=== PATIENT | female | born 1945 | race Caucasian/White ===

== ENCOUNTER 2020-10-31 00:30 | Inpatient (IN) | payer BC, MEDICARE, OTHER ==
[2020-10-31] MEDS ORDERED: METHYLPREDNISOLONE INJ 125 MG/2 ML SDV IV ONE (00:45)
[2020-10-31 00:55] LABS: ABSOLUTE EOSINOPHILS # (AUTO) 0.2 10^3/uL (0.0-0.6); ABSOLUTE LYMPHOCYTES (AUTO) 1.1 10^3/uL (0.5-4.7); ABSOLUTE MONOCYTES (AUTO) 0.7 10^3/uL (0.1-1.4); ABSOLUTE NEUT (AUTO) 7.4 10^3/uL (1.7-8.2); BASOPHILS % (AUTO) 0.4 % (0-2); EOSINOPHILS % (AUTO) 2.2 % (0-6); HEMATOCRIT 30.4 % (36.0-47.0); HEMOGLOBIN 10.1 g/dL (12.0-15.5); LYMPHOCYTES % (AUTO) 11.9 % (13-45); MEAN CORPUSCULAR HEMOGLOBIN 30.8 pg (27.0-33.4); MEAN CORPUSCULAR HGB CONC 33.1 g/dL (32.0-36.0); MEAN CORPUSCULAR VOLUME 93 fl (80-97); PLATELET COUNT 278 10^3/uL (150-450); RED BLOOD COUNT 3.27 10^6/uL (3.72-5.28); SEGMENTED NEUTROPHILS % (AUTO) 78.5 % (42-78); TOTAL CELLS COUNTED % (AUTO) 100 %; WHITE BLOOD COUNT 9.4 10^3/uL (4.0-10.5)
[2020-10-31 01:07] LABS: INTERNATIONAL RATION (INR) 1.16; PROTHROMBIN TIME 15.1 SEC (11.4-15.4)
[2020-10-31 01:12] LABS: ARTERIAL BLOOD BASE EXCESS 4.2 mmol/L; ARTERIAL BLOOD H2CO3 2.13 mmol/L (1.05-1.35); ARTERIAL BLOOD HCO3 32.6 mmol/L (20-24); ARTERIAL BLOOD O2 SATURATION 99.9 % (94-98); ARTERIAL BLOOD PH 7.28 (7.35-7.45); ARTERIAL BLOOD PO2 596.4 mmHg (80-100); ARTERIAL BLOOD TOTAL CO2 34.8 mmol/L (21-25)
[2020-10-31 01:13] LABS: ARTERIAL BLOOD FIO2 100%
[2020-10-31 01:14] LABS: ARTERIAL BLOOD PCO2 70.7 mmHg (35-45)
[2020-10-31 01:15] LABS: APPEARANCE,URINE SLIGHTLY-CLOUDY; BILIRUBIN,URINE NEGATIVE (NEGATIVE); COLOR,URINE YELLOW; GLUCOSE, URINE NEGATIVE (NEGATIVE); KETONES,URINE NEGATIVE (NEGATIVE); PROTEIN,URINE >=500 mg/dL (NEGATIVE); URINE SPECIFIC GRAVITY 1.013; UROBILINOGEN,URINE NEGATIVE mg/dL (<2.0)
[2020-10-31 01:16] LABS: ALBUMIN 3.2 g/dL (3.5-5.0); ALKALINE PHOSPHATASE 61 U/L (38-126); ANION GAP 6 (5-19); ASPARTATE AMINO TRANSFERASE 22 U/L (14-36); BILIRUBIN,DIRECT 0.3 mg/dL (0.0-0.4); BILIRUBIN,TOTAL 0.5 mg/dL (0.2-1.3); BLOOD UREA NITROGEN 14 mg/dL (7-20); CALCIUM 8.2 mg/dL (8.4-10.2); CARBON DIOXIDE 34 mmol/L (22-30); CHLORIDE 92 mmol/L (98-107); GLUCOSE 207 mg/dL (75-110); POTASSIUM 4.2 mmol/L (3.6-5.0); TOTAL PROTEIN 5.1 g/dL (6.3-8.2)
--- NOTE | 2020-10-31 01:20 | RADIOLOGY REPORT (SQ) ---
EXAM DESCRIPTION: X-RAY CHEST- One View CLINICAL HISTORY: Evaluate endotracheal tube and orogastric tube placement. COMPARISON: None available. TECHNIQUE: Single view of the chest. FINDINGS: Patient is status post intubation with endotracheal tube tip approximately 3.8 cm above the emeka. Enteric tube is seen coursing below the diaphragm with tip beyond the imaged portion of the abdomen. There is trace blunting of the bilateral costophrenic angles with minimal bibasilar opacities. The pulmonary vascularity is normal. The cardiomediastinal silhouette is normal in size. Osseous structures appear grossly intact. IMPRESSION: 1. Positioning of endotracheal tube and enteric tube as above. 2. Evidence of small bilateral pleural effusions with nonspecific adjacent opacities.
[2020-10-31 01:35] LABS: NT PRO BNP 563 pg/mL (<125); TROPONIN I < 0.012 ng/mL
[2020-10-31] MEDS ORDERED: PROPOFOL 1,000 MG/100 ML INFUS..BTL IV PRN (02:21)
[2020-10-31] MEDS ORDERED: LORAZEPAM INJ 2 MG/1 ML VIAL IV ONE (03:12)
[2020-10-31] MEDS ORDERED: VECURONIUM BROMIDE INJ 10 MG VIAL IV ONE (03:12)
[2020-10-31 04:51] LABS: PHOSPHORUS 4.5 mg/dL (2.5-4.5)
--- NOTE | 2020-10-31 04:52 | ER Document Report ---
ED General - General Chief Complaint: Respiratory Arrest Stated Complaint: DIFFFICULTY BREATHING Time Seen by Provider: 10/31/20 00:41 Primary Care Provider: YAZMIN DELGADILLO [Primary Care Provider] - Follow up as needed - HPI Context: Chief Complaint: [Respiratory failure] [This is a 75-year-old female with a history of COPD who presents via EMS. EMS is relating all history on the patient; patient arrives intubated. Call was made to EMS for respiratory difficulty. When EMS arrived they noted that the patient was in obvious respiratory distress and measured a O2 sat of 91% on 4 L of oxygen. The EMS crew administered 1 albuterol treatment followed by 1 albuterol/Atrovent treatment. This was unfortunately unsuccessful in alleviating the patient's symptoms. She became unresponsive and her teeth were clenched so EMS performed RSI and intubated the patient with a 6.5 ET tube. ] History obtained from [patient] Symptoms began:[Last night] Onset: [Gradual] Timing: [Gradual] Quality: [Sensation of dyspnea] Intensity: [Severe per EMS] Location: [Respiratory system] Radiation: [N/A] [The pain does not migrate to a new location.] Aggravating factors: History of COPD Relieving factors: [none] Positive SOB [Denies] nausea [Denies] vomiting [Denies] sweats [Denies] fever [Denies] cough [Denies] calf or leg swelling or pain - Related Data Allergies/Adverse Reactions: No Known Allergies Allergy (Unverified 10/31/20 00:58) Home Medications: acebutol 200mg, alprazolam 0.5mg, amlodepine 2.5mg, apixaban 5mg, atorvastain 20mg, biotin, calcium, cranberry tab, flecainide 50mg tab, fluoxetine 10mg, gabapentin 300mg, hydrocodone-acetaminophen 5-325, duo-neb, culturelle, levomefolate-algal oil, levothyroxine 100mcg, losartan 100mg, magnesium oxide 400mg, omeprazole 40mg, ondansetron 4mg, 2L O2, temazepam, tizanidine 4mg, trelegy ellipta, ventolin inhaler, vitamin C 500mg, Vitamin D3 100mcg Past Medical History - General Information source: Patient - Social History Smoking Status: Unknown if Ever Smoked Lives with: Family Family History: Reviewed & Not Pertinent - Past Medical History Cardiac Medical History: Reports: Hx Hypertension Pulmonary Medical History: Reports: Hx COPD Review of Systems - Review of Systems Notes: Review of systems as below unless otherwise stated in HPI. CONSTITUTIONAL [No] fever, [No] chills. EYES [No] eye pain. ENT [No] URI symptoms, [No] sore throat, [No] ear pain. CARDIOVASCULAR [No] chest pain, [No] palpitations, [No] edema. RESPIRATORY [No] Cough, positive SOB, [No] wheezing. GASTROINTESTINAL [No] abdominal pain, [No] nausea, [No] Diarrhea, [No] Vomiting, [No] constipatio n, [No] melena, [No] rectal bleeding. GENITOURINARY [No] dysuria, [No] urinary frequency, [No] hematuria, [No] urinary urgency, [No] vaginal discharge, [No] vaginal bleeding. MUSCULOSKELETAL [No] Back pain. SKIN [No] Rash. NEUROLOGIC [No] Headache, [No] recent seizures, [No] paralysis,[No] parathesias. ENDOCRINE [No] polyuria. HEMO/LYMPATIC [No] easy brusing PSYCHIATRIC [No] depression. Physical Exam - Vital signs Vitals: Pulse Ox 100 10/31/20 00:30 - Notes Notes: CONSTITUTIONAL [Vital signs reviewed, patient is intubated, sedated and paralyzed. Current GCS is 3 HEAD [Atraumatic, Normocephalic.] EYES [Eyes are normal to inspection, No discharge from eyes, Sclera are normal, Conjunctiva are normal.] ENT [External ears normal to inspection, Nose examination normal, Mouth normal to inspection.] NECK No jugular venous distention, No meningeal signs, ] RESPIRATORY CHEST [Chest is nontender, breath sounds currently sound clear and equal bilaterally.] CARDIOVASCULAR [RRR, No murmurs, Normal S1 S2, No rub, No gallop.] ABDOMEN [Abdomen is nontender, No pulsatile masses, No other masses, Bowel sounds normal, No distension, No peritoneal signs, No hernias.] BACK [There is no CVA Tenderness, There is no tenderness to palpation, Normal inspection.] UPPER EXTREMITY [Inspection normal, No cyanosis, No clubbing, No edema, LOWER EXTREMITY [Inspection normal, No cyanosis, No clubbing, No edema, No calf tenderness, NEURO Patient is intubated sedated and paralyzed. Current GCS is 3.] SKIN [Skin is warm, Skin is dry, Skin is normal color.] PSYCHIATRIC [Unable to assess at this time. ] Course - Vital Signs Vital signs: Temp Pulse Resp BP Pulse Ox 98.6 F 71 13 140/66 H 100 10/31/20 04:16 10/31/20 00:55 10/31/20 04:15 10/31/20 04:16 10/31/20 04:30 - Laboratory Results Result Diagrams: 10/31/20 00:37 10/31/20 00:37 Laboratory Results Interpreted: 10/31/20 10/31/20 10/31/20 00:37 00:37 00:37 RBC 3.27 L Hgb 10.1 L Hct 30.4 L Lymph % (Auto) 11.9 L Seg Neutrophils % 78.5 H Carbonic Acid ABG pH ABG pCO2 ABG pO2 ABG HCO3 ABG Total CO2 ABG O2 Saturation Sodium 131.7 L Chloride 92 L Carbon Dioxide 34 H Glucose 207 H POC Glucose Calcium 8.2 L NT-Pro-B Natriuret Pep 563 H Total Protein 5.1 L Albumin 3.2 L Urine Protein Leukocyte Esterase Rfl 10/31/20 10/31/20 10/31/20 00:37 00:37 01:33 RBC Hgb Hct Lymph % (Auto) Seg Neutrophils % Carbonic Acid 2.13 H ABG pH 7.28 L ABG pCO2 70.7 H* ABG pO2 596.4 H ABG HCO3 32.6 H ABG Total CO2 34.8 H ABG O2 Saturation 99.9 H Sodium Chloride Carbon Dioxide Glucose POC Glucose 181 H Calcium NT-Pro-B Natriuret Pep Total Protein Albumin Urine Protein >=500 H Leukocyte Esterase Rfl SMALL H 10/31/20 03:33 RBC Hgb Hct Lymph % (Auto) Seg Neutrophils % Carbonic Acid 1.59 H ABG pH ABG pCO2 52.9 H ABG pO2 142.3 H ABG HCO3 30.7 H ABG Total CO2 32.3 H ABG O2 Saturation 98.7 H Sodium Chloride Carbon Dioxide Glucose POC Glucose Calcium NT-Pro-B Natriuret Pep Total Protein Albumin Urine Protein Leukocyte Esterase Rfl Critical Laboratory Results Reviewed: Yes Attending or Supervising Physician who Reviewed Labs: SHASHANK,SUMMER IV - Radiology Results Critical Radiology Results Reviewed: No Critical Results Attending or Supervising Physician who Reviewed Radiology: SUMMER ENCARNACION IV - EKG Interpretation by Me Additional EKG results interpreted by me: 10/31/20 05:02 EKG obtained on 10/31/2020 at 0110 hrs. was interpreted by this MD. Findings: Normal sinus rhythm, rate 65, normal axis, WI interval appears to be within normal limits, P waves preceding QRS complexes, QRS complexes appear narrow, QTC is 466, there are no obvious patterns of ST segment elevation, depression or reciprocal changes present to suggest acute myocardial ischemia or infarction. - Consults Ricardo Campbell NP, Automobile Relocation Engineer Service Time consulted: 04:30 - Excepted patient for admission to ICU on behalf of Dr. Kim Reason for consultation: 10/31/20 05:04 Acute respiratory failure with hypercapnia, patient intubated Consulted provider: will come to ER Procedures - Intubation Orotracheal Time of Intubation: 00:30 - 6.5 tube needs to be exchanged for better respiratory management Airway evaluation: Normal anatomy Mallampati Classification: Class 2 Intubation method: Orotracheal Blade type: Castell[place] Blade size: 4 Equipment used: Bougie ETT size: 7.5 ETT secured at: Lips ETT secured at (cm): 22 Breath Sounds after Intubation: Equal End tidal CO2 confirmed: Yes Ventilator settings: CMV Post Intubation Xray: Yes Intubation Complications: No complications Critical Care Note - Critical Care Note Total time excluding time spent on procedures (mins): 120 - Management of intub ated patient and respiratory failure with hypercapnia Discharge - Discharge Clinical Impression: Acute respiratory failure with hypercapnia Condition: Serious Disposition: ADMITTED INPATIENT Admitting Provider: Judy (Automobile Relocation Engineer) Unit Admitted: ICU Referrals: LOCALMD,NO [Primary Care Provider] - Follow up as needed
[2020-10-31 04:55] LABS: ARTERIAL BLOOD BASE EXCESS 4.7 mmol/L; ARTERIAL BLOOD FIO2 40%; ARTERIAL BLOOD H2CO3 1.59 mmol/L (1.05-1.35); ARTERIAL BLOOD HCO3 30.7 mmol/L (20-24); ARTERIAL BLOOD O2 SATURATION 98.7 % (94-98); ARTERIAL BLOOD PCO2 52.9 mmHg (35-45); ARTERIAL BLOOD PH 7.38 (7.35-7.45); ARTERIAL BLOOD PO2 142.3 mmHg (80-100); ARTERIAL BLOOD TOTAL CO2 32.3 mmol/L (21-25)
[2020-10-31] MEDS ORDERED: NORMAL SALINE 1000 ML 1,000 ML IV PRN (05:42)
[2020-10-31] MEDS ORDERED: DEXTROSE 40% GEL 15 GM TUBE PO PRN ×2 (05:51)
[2020-10-31] MEDS ORDERED: DEXMEDETOMIDINE IN 0.9 % NACL 400 MCG/100 ML RTUPB IV PRN (05:51)
[2020-10-31] MEDS ORDERED: GLUCAGON,HUMAN RECOMB 1 MG INJ IM PRN (05:51)
[2020-10-31] MEDS ORDERED: DEXTROSE 50%-WATER 25 GM/50 ML DISP.SYRIN IV PRN ×2 (05:51)
[2020-10-31] MEDS ORDERED: HYDROCOD/ACETAMIN 7.5-325 MG/15 ML ORAL SOLN UDCUP NG PRN (06:08)
[2020-10-31] MEDS ORDERED: FENTANYL CITRATE INJ/PF 100 MCG/2 ML AMPUL IV ONE (06:10)
[2020-10-31 07:00] LABS: APPEARANCE,URINE CLEAR; BILIRUBIN,URINE NEGATIVE (NEGATIVE); COLOR,URINE YELLOW; GLUCOSE, URINE 50 mg/dL (NEGATIVE); KETONES,URINE TRACE mg/dL (NEGATIVE); LEUKOCYTE ESTERASE,URINE NEGATIVE (NEGATIVE); NITRITE,URINE NEGATIVE (NEGATIVE); PROTEIN,URINE 30 mg/dL (NEGATIVE); URINE SPECIFIC GRAVITY 1.012; UROBILINOGEN,URINE NEGATIVE mg/dL (<2.0)
--- NOTE | 2020-10-31 07:55 | EKG REPORT ---
SEVERITY:- NORMAL ECG - SINUS RHYTHM : Confirmed by: Dipak Elena 31-Oct-2020 07:54:34
--- NOTE | 2020-10-31 08:28 | CRITICAL CARE ADMISSION REPORT ---
HPI Date:: 10/31/20 Time:: 05:30 Reason for ICU Reason:: Acute on chronic respiratory failure due to hypoxia and hypercapnia. Encounter for wean from mechanical ventilator. COPD exacerbation Admission Date/Time & PCP: Admission Date/Time: Primary Care Provider: History obtained from:: ER physician, patient, Mr Roberson - Diagnosis/Plan (1) Acute on chronic respiratory failure with hypoxia and hypercapnia Is this a current diagnosis for this admission?: Yes (2) COPD exacerbation Is this a current diagnosis for this admission?: Yes (3) Anxiety Is this a current diagnosis for this admission?: Yes (4) Hypothyroidism Qualifiers: Hypothyroidism type: unspecified Qualified Code(s): E03.9 - Hypothyroidism, unspecified Is this a current diagnosis for this admission?: Yes (5) Hyperglycemia, drug-induced Is this a current diagnosis for this admission?: Yes (6) Chronic back pain Qualifiers: Back pain location: back pain in unspecified location Back pain laterality: unspecified Qualified Code(s): M54.9 - Dorsalgia, unspecified; G89.29 - Other chronic pain Is this a current diagnosis for this admission?: Yes (7) Diarrhea Qualifiers: Diarrhea type: unspecified type Qualified Code(s): R19.7 - Diarrhea, unspecified Is this a current diagnosis for this admission?: Yes Plan Summary: Neuro: change Propofol to Dexmedetomidine to achieve RASS goal -2; Fentanyl x1 now for pain then hydrocodone elixir prn for chronic back pain Pulm: 40 mg BID Solu-medrol, q6h Duo-nebs, possibly change to pressure support ventilation later today. Sees Dr Butts from [facility] CV: contact [facility] in [place] during business hours to discuss "heart arrhythmia" patient reportedly has for which says is not Afib, but patient is on anticoagulation. Currently NSR with no hemodynamic instability. GI//FEN: Been experiencing diarrhea for a few days with no antibiotic exposure and no leukocytosis usually observed with C-diff, denies abdominal pain. NPO, NS at 75 ml/hr for hydration, NG LIWS, check AM chemistries. Consider tube feeds this afternoon. Mitchell for strict I&O Heme/ID: AM CBC. Though there is no leukocytosis, there is a very mild left sh ift and patient reports new onset yellow sputum production past few days, denying chronic bronchitis. Will cover for pseudomonas with Cefepime 1g q6h for now. Blood cultures, sputum gram stain and Cx, respiratory viral panel Cx, check urinalysis. Endo: start ISS coverage q6h due to steroids & acute illness MSK/Integ: Turn q2h, elevate HOB >30 & provide oral care to prevent VAP Prophylaxis with Famotidine and Lovenox Disposition: ICU for ventilator management and wean. Past Medical History Cardiac Medical History: Reports: Hypertension, Other - "irregular heart beat" per Denies: Atrial Fibrillation, Congestive Heart Failure, Coronary Artery Disease Pulmonary Medical History: Reports: Chronic Obstructive Pulmonary Disease (COPD) EENT Medical History: Denies: None Neurological Medical History: Denies: None Endocrine Medical History: Reports: Hypothyroidism Renal/ Medical History: Denies: Chronic Kidney Disease Malignancy Medical History: Reports: None GI Medical History: Reports: Other - Hx colonic polypectomies that were benign Musculoskeltal Medical History: Reports: None Skin Medical History: Reports: None Psychiatric Medical History: Reports: General Anxiety Disorder Denies: Bipolar Disorder, Depression Traumatic Medical History: Reports: None Hematology: Reports: Other - "bruises easily" secondary to anticoagulation Infectious Medical History: Reports: None Past Surgical History Past Surgical History: Reports: Other - Spinal fusion, polypectomies Social/Family History - Social History Lives with: Family - spouse Smoking Status: Current Some Day Smoker - hasn't had cigarette in 2-3 weeks, prior to this 1 cigarette every 1.5 weeks, prior to this 3 cigs daily for long period of time Frequency of Alcohol Use: None Hx Recreational Drug Use: No Drugs: None Hx Prescription Drug Abuse: No - Family History Family History: Hypertension - Medication/Allergies Allergies/Adverse Reactions: No Known Allergies Allergy (Unverified 10/31/20 00:58) Review of Systems ROS unobtainable: Due to endotracheal tube - somewhat limited due to endotracheal tube Constitutional: PRESENT: weakness - chronic, uses walker and has to assist often. ABSENT: anorexia, chills, fever(s), headache(s), night sweats Eyes: ABSENT: visual disturbances Ears: ABSENT: hearing changes - not acute Nose, Mouth, and Throat: ABSENT: headache(s), mouth pain, sore throat Cardiovascular: PRESENT: dyspnea on exertion. ABSENT: chest pain, edema, palpitations Respiratory: PRESENT: cough, dyspnea, sputum - productive with yellow sputum, denies chronic bronchitis and usually doesn't produce sputum. ABSENT: hemoptysis Gastrointestinal: PRESENT: diarrhea - for a couple of days. ABSENT: abdominal pain, bloating, dysphagia, hematemesis, hematochezia, melena, nausea, vomiting Genitourinary: ABSENT: difficulty urinating, dysuria Musculoskeletal: PRESENT: back pain - chronic, Hx spinal fusion. ABSENT: deformity, joint swelling Integumentary: ABSENT: diaphoresis, erythema, rash Neurological: PRESENT: other - uses walker at baseline and also has to provide a fair amount of assistance often Psychiatric: PRESENT: anxiety. ABSENT: depression, hallucinations, suicidal ideation Endocrine: ABSENT: cold intolerance, flushing, polydipsia, polyphagia, polyuria Hematologic/Lymphatic: PRESENT: easy bruising - since she's been on oral anticoagulation for a "heart arrhythmia" though says it is not a-fib. ABSENT: lymphadenopathy Allergic/Immunologic: PRESENT: seasonal rhinorrhea Physical Exam Vital Signs: Temp Pulse Resp BP Pulse Ox 98.6 F 71 13 140/66 H 100 10/31/20 04:16 10/31/20 00:55 10/31/20 04:15 10/31/20 04:16 10/31/20 04:30 Intake & Output 10/29/20 10/30/20 10/31/20 06:59 06:59 06:59 Intake Total 2 Balance 2 Weight 57.6 kg Weight/Height Weight 57.6 kg Height 5 ft General appearance: PRESENT: no acute distress, cooperative, well-nourished Head exam: PRESENT: atraumatic, normocephalic Eye exam: PRESENT: conjunctiva pink, EOMI, PERRLA. ABSENT: nystagmus, periorbital swelling, scleral icterus Ear exam: PRESENT: normal external ear exam. ABSENT: drainage Mouth exam: PRESENT: moist, neck supple, tongue midline Neck exam: ABSENT: JVD, lymphadenopathy, tenderness, tracheal deviation Respiratory exam: PRESENT: clear to auscultation lavern, symmetrical, unlabored. ABSENT: accessory muscle use, chest wall tenderness, tachypnea, wheezes Cardiovascular exam: PRESENT: RRR, +S1, +S2 Pulses: PRESENT: normal radial pulses, +1 pedal pulses bilateral Vascular exam: PRESENT: normal capillary refill GI/Abdominal exam: PRESENT: normal bowel sounds, soft. ABSENT: distended, English's sign, rebound, tenderness Rectal exam: PRESENT: deferred Gentrourinary exam: PRESENT: indwelling catheter. ABSENT: erythema, urethral discharge Extremities exam: ABSENT: calf tenderness, joint swelling, pedal edema, tenderness Musculoskeletal exam: PRESENT: normal inspection Neurological exam: PRESENT: awake, other - following commands on ventilator, though somewhat limited in evaluating range of motion as paralytic wearing off Psychiatric exam: PRESENT: other - appropriate for being intubated, calm Skin exam: PRESENT: dry, intact, warm. ABSENT: jaundice, mottled Tubes/Lines: PRESENT: Endotracheal Tube, Other - orogastric tube, mitchell Laboratory/Radiographs Laboratory Results: 10/31/20 00:37 10/31/20 00:37 10/31/20 10/31/20 10/31/20 00:37 00:37 00:37 WBC 9.4 RBC 3.27 L Hgb 10.1 L Hct 30.4 L MCV 93 MCH 30.8 MCHC 33.1 RDW 14.0 Plt Count 278 Seg Neutrophils % 78.5 H Carbonic Acid HCO3/H2CO3 Ratio ABG pH ABG pCO2 ABG pO2 ABG HCO3 ABG O2 Saturation ABG Base Excess FiO2 Sodium 131.7 L Potassium 4.2 Chloride 92 L Carbon Dioxide 34 H Anion Gap 6 BUN 14 Creatinine 0.70 Est GFR ( Amer) > 60 Glucose 207 H Lactic Acid 1.6 Calcium 8.2 L Phosphorus Magnesium Total Bilirubin 0.5 AST 22 Alkaline Phosphatase 61 Total Protein 5.1 L Albumin 3.2 L Urine Color Urine Appearance Urine pH Ur Specific [place] Urine Protein Urine Glucose (UA) Urine Ketones Urine Blood Urine RBC (Auto) 10/31/20 10/31/20 10/31/20 00:37 00:37 00:37 WBC RBC Hgb Hct MCV MCH MCHC RDW Plt Count Seg Neutrophils % Carbonic Acid 2.13 H HCO3/H2CO3 Ratio 15:1 ABG pH 7.28 L ABG pCO2 70.7 H* ABG pO2 596.4 H ABG HCO3 32.6 H ABG O2 Saturation 99.9 H ABG Base Excess 4.2 FiO2 100% Sodium Potassium Chloride Carbon Dioxide Anion Gap BUN Creatinine Est GFR ( Amer) Glucose Lactic Acid Calcium Phosphorus 4.5 Magnesium 1.9 Total Bilirubin AST Alkaline Phosphatase Total Protein Albumin Urine Color YELLOW Urine Appearance SLIGHTLY-CLOUDY Urine pH 7.0 Ur Specific [place] 1.013 Urine Protein >=500 H Urine Glucose (UA) NEGATIVE Urine Ketones NEGATIVE Urine Blood NEGATIVE Urine RBC (Auto) 3 10/31/20 03:33 WBC RBC Hgb Hct MCV MCH MCHC RDW Plt Count Seg Neutrophils % Carbonic Acid 1.59 H HCO3/H2CO3 Ratio 19:1 ABG pH 7.38 ABG pCO2 52.9 H ABG pO2 142.3 H ABG HCO3 30.7 H ABG O2 Saturation 98.7 H ABG Base Excess 4.7 FiO2 40% Sodium Potassium Chloride Carbon Dioxide Anion Gap BUN Creatinine Est GFR ( Amer) Glucose Lactic Acid Calcium Phosphorus Magnesium Total Bilirubin AST Alkaline Phosphatase Total Protein Albumin Urine Color Urine Appearance Urine pH Ur Specific [place] Urine Protein Urine Glucose (UA) Urine Ketones Urine Blood Urine RBC (Auto) 10/31/20 00:37 Troponin I < 0.012 NT-Pro-B Natriuret Pep 563 H Impressions: Chest X-Ray 10/31/20 00:44 IMPRESSION: 1. Positioning of endotracheal tube and enteric tube as above. 2. Evidence of small bilateral pleural effusions with nonspecific adjacent opacities. All labs, radiographs, diagnostic studies and EKGs were personally reviewed: Yes Critical Time Critical Time (minutes): 85 -: The care of a critically ill patient is dynamic. This note represents a static moment in the admission process. Orders and treatments may be given simultaneously and urgently, and time is not jewelry sales representative of the treatment process. This patient requires Critical Care secondary to life threatening organ or limb dysfunction. Without Critical Care services, the patient is at risk for increased mortality and morbidity.
[2020-10-31] MEDS: IPRATROPIUM/ALBUTEROL 0.5-2.5 MG/3 ML AMPUL NEB SCH ×3 (08:39→20:34)
[2020-10-31] MEDS: INSULIN REG, HUMAN 100 UNIT/ML 3 ML VIAL (PYX) SUBCUT SCH ×3 (08:47→18:14)
[2020-10-31] MEDS: CEFEPIME 1 GM/D5W RTU 1 GM/50 ML RTUPB IV SCH ×3 (09:26→22:43)
[2020-10-31] MEDS ORDERED: ENOXAPARIN SODIUM INJ 30 MG/0.3 ML DISP.SYRIN SUBCUT SCH (10:00)
[2020-10-31] MEDS: FAMOTIDINE INJ/PF 20 MG/2 ML SDV IV SCH ×2 (11:11→18:14)
[2020-10-31] MEDS: FUROSEMIDE INJ/PF 20 MG/2 ML SDV IV SCH ×2 (14:16→22:43)
[2020-10-31] MEDS ORDERED: METHYLPREDNISOLONE INJ 40 MG/1 ML SDV IV ONE (14:30)
[2020-10-31] MEDS: AZITHROMYCIN 500 MG in DEXTROSE 5%-WATER 250 ML IV SCH (14:56)
--- NOTE | 2020-10-31 18:13 | Progress Note ---
Provider Note Provider Note: Patient was successfully extubated to face tent (initially), subsequently placed on nasal cannula.
[2020-10-31] MEDS: METHYLPREDNISOLONE INJ 40 MG/1 ML SDV IV SCH (18:14)
[2020-10-31] MEDS ORDERED: TIZANIDINE HCL 4 MG TABLET PO PRN (18:43)
[2020-10-31] MEDS: ALPRAZOLAM 0.5 MG TABLET PO PRN (20:38)
[2020-10-31] MEDS ORDERED: FLUOXETINE HCL 20 MG CAPSULE PO ONE (23:30)
[2020-11-01] MEDS: INSULIN REG, HUMAN 100 UNIT/ML 3 ML VIAL (PYX) SUBCUT SCH ×5 (00:03→23:32)
[2020-11-01] MEDS: ACETAMINOPHEN 325 MG TABLET PO PRN (00:20)
[2020-11-01] MEDS ORDERED: ONDANSETRON HCL INJ/PF 4 MG/2 ML SDV IV ONE (01:45)
[2020-11-01] MEDS: IPRATROPIUM/ALBUTEROL 0.5-2.5 MG/3 ML AMPUL NEB SCH ×2 (01:59→07:53)
[2020-11-01] MEDS: CEFEPIME 1 GM/D5W RTU 1 GM/50 ML RTUPB IV SCH ×4 (02:02→21:06)
[2020-11-01] MEDS: METHYLPREDNISOLONE INJ 40 MG/1 ML SDV IV SCH ×2 (06:23→17:40)
[2020-11-01] MEDS: ALPRAZOLAM 0.5 MG TABLET PO PRN (06:23)
[2020-11-01 07:00] LABS: ABSOLUTE LYMPHOCYTES (AUTO) 0.7 10^3/uL (0.5-4.7); ABSOLUTE MONOCYTES (AUTO) 1.2 10^3/uL (0.1-1.4); ABSOLUTE NEUT (AUTO) 11.2 10^3/uL (1.7-8.2); BASOPHILS % (AUTO) 0.1 % (0-2); HEMATOCRIT 31.4 % (36.0-47.0); HEMOGLOBIN 10.5 g/dL (12.0-15.5); LYMPHOCYTES % (AUTO) 5.2 % (13-45); MEAN CORPUSCULAR HEMOGLOBIN 30.2 pg (27.0-33.4); MEAN CORPUSCULAR HGB CONC 33.4 g/dL (32.0-36.0); MEAN CORPUSCULAR VOLUME 90 fl (80-97); MONOCYTES % (AUTO) 8.9 % (3-13); PLATELET COUNT 291 10^3/uL (150-450); RED BLOOD COUNT 3.47 10^6/uL (3.72-5.28); RED CELL DISTRIBUTION WIDTH 14.1 % (11.5-14.0); SEGMENTED NEUTROPHILS % (AUTO) 85.8 % (42-78); TOTAL CELLS COUNTED % (AUTO) 100 %
[2020-11-01 07:39] LABS: ANION GAP 7 (5-19); BLOOD UREA NITROGEN 16 mg/dL (7-20); CALCIUM 8.2 mg/dL (8.4-10.2); CARBON DIOXIDE 33 mmol/L (22-30); CHLORIDE 87 mmol/L (98-107); GLUCOSE 130 mg/dL (75-110); PHOSPHORUS 2.2 mg/dL (2.5-4.5); POTASSIUM 3.9 mmol/L (3.6-5.0)
[2020-11-01] MEDS ORDERED: LEVOTHYROXINE SODIUM 100 MCG PO SCH (08:00)
--- NOTE | 2020-11-01 08:34 | RADIOLOGY REPORT (SQ) ---
EXAM DESCRIPTION: CHEST SINGLE VIEW IMAGES COMPLETED DATE/TIME: 11/01/2020 8:21 am REASON FOR STUDY: resp failure; r/o new infiltrate COMPARISON: 10/31/2020. EXAM PARAMETERS: NUMBER OF VIEWS: One view. TECHNIQUE: Single frontal radiographic view of the chest acquired. RADIATION DOSE: NA LIMITATIONS: None. FINDINGS: LUNGS AND PLEURA: Improved aeration. Minimal interstitial prominence. No lobar infiltrat es. No large pleural effusion. No pneumothorax. MEDIASTINUM AND HILAR STRUCTURES: No masses. Contour normal. HEART AND VASCULAR STRUCTURES: Heart normal in size. Normal vasculature. BONES: No acute findings. HARDWARE: Interval removal of the endotracheal tube and nasogastric tube. OTHER: No other significant finding. IMPRESSION: MINIMAL INTERSTITIAL PROMINENCE. MAY BE CHRONIC. NO ACUTE FINDINGS. TECHNICAL DOCUMENTATION: JOB ID: [id number] 2010 [employer]- All Rights Reserved Reading location - IP/workstation name: [email or web address]
[2020-11-01] MEDS ORDERED: (PENDING PHARMACY ID) (Losartan Potassium [Losartan Potassium] 100 MG Tablet) PO SCH (10:00)
[2020-11-01] MEDS ORDERED: MAGNESIUM OXIDE 400 MG PO SCH (10:00)
[2020-11-01] MEDS ORDERED: LACTOBACILLUS RHAMNOSUS GG PO SCH (10:00)
[2020-11-01] MEDS: CALCIUM CARBONATE 600 MG TABLET PO SCH (10:05)
[2020-11-01] MEDS: APIXABAN 5 MG TABLET PO SCH ×2 (10:05→17:39)
[2020-11-01] MEDS: ATORVASTATIN CALCIUM 20 MG TABLET PO SCH (10:05)
[2020-11-01] MEDS: LOSARTAN POTASSIUM 50 MG TABLET PO SCH (10:05)
[2020-11-01] MEDS: LACTOBACILLUS ACIDOPHILUS 250 MG TAB PO SCH (10:05)
[2020-11-01] MEDS: GABAPENTIN 300 MG CAPSULE PO SCH ×3 (10:05→17:40)
[2020-11-01] MEDS: MAGNESIUM OXIDE 400 MG TABLET PO SCH (10:06)
[2020-11-01] MEDS: FAMOTIDINE INJ/PF 20 MG/2 ML SDV IV SCH ×2 (10:06→17:40)
[2020-11-01] MEDS: FLUTICASONE/UMECLIDIN/VILANTER 100-62.5-25 MCG/DOSE IH SCH (10:07)
[2020-11-01] MEDS ORDERED: METOPROLOL TARTRATE PF/INJ 5 MG/5 ML SDV IV PRN (10:15)
[2020-11-01] MEDS: HYDROCODONE/ACETAMINOPHEN 5-325 MG TABLET PO PRN (10:15)
[2020-11-01] MEDS ORDERED: LORAZEPAM INJ 2 MG/1 ML VIAL IV ONE (11:15)
[2020-11-01] MEDS: FLECAINIDE ACETATE 100 MG TABLET PO SCH (11:21)
[2020-11-01] MEDS: AMLODIPINE BESYLATE 2.5 MG TABLET PO SCH ×2 (11:21→17:39)
[2020-11-01] MEDS: LEVALBUTEROL HCL NEB 0.63 MG/3 ML AMPUL NEB SCH ×3 (11:39→19:57)
[2020-11-01] MEDS: AZITHROMYCIN 500 MG in DEXTROSE 5%-WATER 250 ML IV SCH (14:30)
--- NOTE | 2020-11-01 16:07 | PDOC PROGRESS REPORT ---
Subjective Date:: 11/01/20 Subjective:: 75-year-old female past medical history of atrial fibrillation oxygen dependent COPD, hypothyroidism, anxiety, presented to [facility] via EMS on 10/31/2020 being intubated at her facility after she was found unresponsive, as per admission note initially called EMS as patient was having difficulty breathing and requiring more oxygen. ICU was called, endotracheal tube switch, started on Solu-Medrol and taken to ICU. Patient successfully extubated yesterday and transferred to [facility]. 11/01/2020. No acute events overnight, saw patient this morning accompanied by her , not appear to be in any apparent distress, but appears to be very anxious and asking for Xanax, alert and oriented, cooperative with physical examination, answering questions appropriately, denies any chest pain, nausea, vomiting, diarrhea, constipation or any urinary symptoms. Reason For Visit: ACUTE RESPIRATORY FAILURE WITH HYPERCAPRINA Physical Exam Vital Signs: Temp Pulse Resp BP Pulse Ox 97.9 F 84 15 140/61 H 94 11/01/20 10:00 11/01/20 13:32 11/01/20 13:32 11/01/20 07:41 11/01/20 13:32 Intake & Output 10/31/20 11/01/20 11/02/20 06:59 06:59 06:59 Intake Total 9 702 50 Output Total 3285 Balance 9 -2583 50 Weight 57.6 kg 62.7 kg General appearance: PRESENT: no acute distress, well-developed, well-nourished, other - Anxious Head exam: PRESENT: atraumatic, normocephalic Respiratory exam: PRESENT: decreased breath sounds, prolonged expiratory phas, tachypnea, wheezes. ABSENT: rales, rhonchi Cardiovascular exam: PRESENT: RRR, tachycardia. ABSENT: diastolic murmur, rubs, systolic murmur GI/Abdominal exam: PRESENT: normal bowel sounds, soft. ABSENT: distended, guarding, mass, organolmegaly, rebound, tenderness Neurological exam: PRESENT: alert, awake, oriented to person, oriented to place, oriented to time, oriented to situation, CN II-XII grossly intact. ABSENT: motor sensory deficit Psychiatric exam: PRESENT: anxious Results Laboratory Results: 11/01/20 06:26 11/01/20 06:26 11/01/20 11/01/20 06:26 06:26 WBC 13.0 H RBC 3.47 L Hgb 10.5 L Hct 31.4 L MCV 90 MCH 30.2 MCHC 33.4 RDW 14.1 H Plt Count 291 Seg Neutrophils % 85.8 H Sodium 127.1 L Potassium 3.9 Chloride 87 L Carbon Dioxide 33 H Anion Gap 7 BUN 16 Creatinine 0.49 L Est GFR ( Amer) > 60 Glucose 130 H Calcium 8.2 L Phosphorus 2.2 L Magnesium 1.6 10/31/20 11:53 Tracheal Aspirate Gram Stain - Final 10/31/20 00:37 Troponin I < 0.012 NT-Pro-B Natriuret Pep 563 H Impressions: Chest X-Ray 11/01/20 06:00 IMPRESSION: MINIMAL INTERSTITIAL PROMINENCE. MAY BE CHRONIC. NO ACUTE FINDINGS. Assessment and Plan - Diagnosis (1) Acute on chronic respiratory failure with hypoxia and hypercapnia Is this a current diagnosis for this admission?: Yes Plan: Significant improvement. SPO2 WNL on 2 L nasal cannula. Most likely to severe acute COPD exacerbation. Intubated on 10/30/2020 at home. Successfully extubated on 10/31/2020. Continue DuoNebs, LAMA, LABA, ICS, steroids, flutter valve, incentive spirometry, pulmonary toileting. (2) Atrial fibrillation Qualifiers: Atrial fibrillation type: permanent Qualified Code(s): I48.21 - Permanent atrial fibrillation Is this a current diagnosis for this admission?: Yes Plan: History of chronic persistent atrial fibrillation. Rate controlled. Anticoagulated. Resume home meds. Outpatient PCP and cardiology follow-up. (3) Anxiety Is this a current diagnosis for this admission?: Yes Plan: History of anxiety, takes Xanax at home. Resume home meds. Fall precautions. (4) COPD exacerbation Is this a current diagnosis for this admission?: Yes Plan: History of oxygen dependent COPD. Plan as per #1. (5) Chronic back pain Qualifiers: Back pain location: back pain in unspecified location Back pain laterality: unspecified Qualified Code(s): M54.9 - Dorsalgia, unspecified; G89.29 - Other chronic pain Is this a current diagnosis for this admission?: Yes Plan: Chronic back pain opioid dependent. Resume home meds. (6) Hypothyroidism Qualifiers: Hypothyroidism type: unspecified Qualified Code(s): E03.9 - Hypothyroidism, unspecified Is this a current diagnosis for this admission?: Yes Plan: Resume home meds. - Time Time Spent with patient: 35 or more minutes Anticipated Discharge Disposition: Home with Home Health Anticipated Discharge Timeframe: within 48 hours
[2020-11-01] MEDS: TEMAZEPAM 15 MG CAPSULE PO SCH (17:39)
[2020-11-01] MEDS ORDERED: FLUOXETINE HCL 10 MG PO SCH (18:00)
[2020-11-01] MEDS ORDERED: FLUOXETINE HCL 20 MG CAPSULE PO SCH ×2 (18:00→22:00)
[2020-11-02] MEDS: LEVALBUTEROL HCL NEB 0.63 MG/3 ML AMPUL NEB SCH ×4 (01:58→19:50)
[2020-11-02] MEDS: ACETAMINOPHEN 325 MG TABLET PO PRN ×2 (02:03→11:04)
[2020-11-02] MEDS: CEFEPIME 1 GM/D5W RTU 1 GM/50 ML RTUPB IV SCH ×4 (02:03→20:06)
[2020-11-02] MEDS: LEVOTHYROXINE SODIUM 0.1 MG TABLET PO SCH (05:40)
[2020-11-02] MEDS: HYDROCODONE/ACETAMINOPHEN 5-325 MG TABLET PO PRN (05:42)
[2020-11-02] MEDS: METHYLPREDNISOLONE INJ 40 MG/1 ML SDV IV SCH ×2 (05:46→17:07)
[2020-11-02] MEDS: INSULIN REG, HUMAN 100 UNIT/ML 3 ML VIAL (PYX) SUBCUT SCH ×3 (05:52→17:01)
[2020-11-02 05:56] LABS: HEMOGLOBIN 10.3 g/dL (12.0-15.5); MEAN CORPUSCULAR HEMOGLOBIN 30.5 pg (27.0-33.4); MEAN CORPUSCULAR HGB CONC 33.3 g/dL (32.0-36.0); MEAN CORPUSCULAR VOLUME 91 fl (80-97); PLATELET COUNT 286 10^3/uL (150-450); RED BLOOD COUNT 3.39 10^6/uL (3.72-5.28); RED CELL DISTRIBUTION WIDTH 14.3 % (11.5-14.0)
[2020-11-02 06:22] LABS: ALBUMIN 3.7 g/dL (3.5-5.0); ALKALINE PHOSPHATASE 29 U/L (38-126); ASPARTATE AMINO TRANSFERASE 27 U/L (14-36); BILIRUBIN,DIRECT 0.3 mg/dL (0.0-0.4); BILIRUBIN,TOTAL 0.7 mg/dL (0.2-1.3); BLOOD UREA NITROGEN 23 mg/dL (7-20); CALCIUM 8.3 mg/dL (8.4-10.2); CARBON DIOXIDE 33 mmol/L (22-30); CHLORIDE 88 mmol/L (98-107); GLUCOSE 133 mg/dL (75-110); PHOSPHORUS 2.7 mg/dL (2.5-4.5); POTASSIUM 4.6 mmol/L (3.6-5.0); TOTAL PROTEIN 6.2 g/dL (6.3-8.2)
[2020-11-02 06:32] LABS: ANION GAP 4 (5-19)
[2020-11-02] MEDS: FAMOTIDINE INJ/PF 20 MG/2 ML SDV IV SCH ×2 (09:27→17:07)
[2020-11-02] MEDS: LORAZEPAM INJ 2 MG/1 ML VIAL IV PRN ×2 (09:27→15:10)
[2020-11-02] MEDS ORDERED: FLUOXETINE HCL 20 MG CAPSULE PO SCH (10:00)
[2020-11-02] MEDS: ONDANSETRON HCL INJ/PF 4 MG/2 ML SDV IV PRN (11:00)
[2020-11-02] MEDS: AMLODIPINE BESYLATE 2.5 MG TABLET PO SCH ×2 (11:04→17:08)
[2020-11-02] MEDS: GABAPENTIN 300 MG CAPSULE PO SCH ×3 (11:05→17:07)
[2020-11-02] MEDS: LACTOBACILLUS ACIDOPHILUS 250 MG TAB PO SCH (11:05)
[2020-11-02] MEDS: ATORVASTATIN CALCIUM 20 MG TABLET PO SCH (11:05)
[2020-11-02] MEDS: MAGNESIUM OXIDE 400 MG TABLET PO SCH (11:05)
[2020-11-02] MEDS: LOSARTAN POTASSIUM 50 MG TABLET PO SCH (11:05)
[2020-11-02] MEDS: APIXABAN 5 MG TABLET PO SCH ×2 (11:06→17:08)
[2020-11-02] MEDS: CALCIUM CARBONATE 600 MG TABLET PO SCH (11:06)
[2020-11-02] MEDS: FLECAINIDE ACETATE 100 MG TABLET PO SCH (11:06)
[2020-11-02] MEDS: SODIUM CHLORIDE 1 GM TABLET PO SCH ×2 (11:06→17:07)
[2020-11-02] MEDS: ESCITALOPRAM OXALATE 10 MG TABLET PO SCH (11:18)
--- NOTE | 2020-11-02 11:21 | PDOC PROGRESS REPORT ---
Subjective Date:: 11/02/20 Subjective:: 75-year-old female past medical history of atrial fibrillation oxygen dependent COPD, hypothyroidism, anxiety, presented to [facility] via EMS on 10/31/2020 being intubated at her facility after she was found unresponsive, as per admission note initially called EMS as patient was having difficulty breathing and requiring more oxygen. ICU was called, endotracheal tube switch, started on Solu-Medrol and taken to ICU. Patient successfully extubated yesterday and transferred to [facility]. 11/01/2020. No acute events overnight, saw patient this morning accompanied by her , not appear to be in any apparent distress, but appears to be very anxious and asking for Xanax, alert and oriented, cooperative with physical examination, answering questions appropriately, denies any chest pain, nausea, vomiting, diarrhea, constipation or any urinary symptoms. 11/02/2020. No acute events overnight, patient reporting improvement of her anxiety, and back pain, denies any fever, chills, nausea, vomiting, noted to have worsening hypercarbia and worsening hyponatremia. Reason For Visit: ACUTE RESPIRATORY FAILURE WITH HYPERCAPRINA Physical Exam Vital Signs: Temp Pulse Resp BP Pulse Ox 98.3 F 72 14 128/56 H 96 11/02/20 07:44 11/02/20 08:16 11/02/20 08:16 11/02/20 07:44 11/02/20 08:16 Intake & Output 11/01/20 11/02/20 11/03/20 06:59 06:59 06:59 Intake Total 702 1050 50 Output Total 3285 825 Balance -2583 225 50 Weight 62.7 kg 104.1 kg General appearance: PRESENT: no acute distress, morbidly obese, well-developed, well-nourished Head exam: PRESENT: atraumatic, normocephalic Neck exam: ABSENT: carotid bruit, JVD, lymphadenopathy, thyromegaly Respiratory exam: PRESENT: clear to auscultation lavern. ABSENT: rales, rhonchi, wheezes Cardiovascular exam: PRESENT: RRR. ABSENT: diastolic murmur, rubs, systolic murmur GI/Abdominal exam: PRESENT: normal bowel sounds, soft. ABSENT: distended, gua rding, mass, organolmegaly, rebound, tenderness Neurological exam: PRESENT: alert, awake, oriented to person, oriented to place, oriented to time, oriented to situation, CN II-XII grossly intact. ABSENT: motor sensory deficit Results Laboratory Results: 11/02/20 05:32 11/02/20 05:32 11/02/20 11/02/20 05:32 05:32 WBC 13.0 H RBC 3.39 L Hgb 10.3 L Hct 31.0 L MCV 91 MCH 30.5 MCHC 33.3 RDW 14.3 H Plt Count 286 Sodium 124.5 L Potassium 4.6 Chloride 88 L Carbon Dioxide 33 H Anion Gap 4 L BUN 23 H Creatinine 0.48 L Est GFR ( Amer) > 60 Glucose 133 H Calcium 8.3 L Phosphorus 2.7 Total Bilirubin 0.7 AST 27 Alkaline Phosphatase 29 L Total Protein 6.2 L Albumin 3.7 10/31/20 11:53 Tracheal Aspirate Gram Stain - Final 10/31/20 00:37 Troponin I < 0.012 NT-Pro-B Natriuret Pep 563 H Impressions: Chest X-Ray 11/01/20 06:00 IMPRESSION: MINIMAL INTERSTITIAL PROMINENCE. MAY BE CHRONIC. NO ACUTE FINDINGS. Assessment and Plan - Diagnosis (1) Acute on chronic respiratory failure with hypoxia and hypercapnia Is this a current diagnosis for this admission?: Yes Plan: Significant improvement. SPO2 WNL on 2 L nasal cannula. Most likely to severe acute COPD exacerbation. Intubated on 10/30/2020 at home. Successfully extubated on 10/31/2020. Continue DuoNebs, LAMA, LABA, ICS, steroids, flutter valve, incentive spirometry, pulmonary toileting. (2) Atrial fibrillation Qualifiers: Atrial fibrillation type: permanent Qualified Code(s): I48.21 - Permanent atrial fibrillation Is this a current diagnosis for this admission?: Yes Plan: History of chronic persistent atrial fibrillation. Rate controlled. Anticoagulated. Resume home meds. Outpatient PCP and cardiology follow-up. (3) Anxiety Is this a current diagnosis for this admission?: Yes Plan: History of anxiety, takes Xanax at home. Resume home meds. Fall precautions. (4) COPD exacerbation Is this a current diagnosis for this admission?: Yes Plan: History of oxygen dependent COPD. Plan as per #1. (5) Chronic back pain Qualifiers: Back pain location: back pain in unspecified location Back pain laterality: unspecified Qualified Code(s): M54.9 - Dorsalgia, unspecified; G89.29 - Other chronic pain Is this a current diagnosis for this admission?: Yes Plan: Chronic back pain opioid dependent. Resume home meds. (6) Hypothyroidism Qualifiers: Hypothyroidism type: unspecified Qualified Code(s): E03.9 - Hypothyroidism, unspecified Is this a current diagnosis for this admission?: Yes Plan: Resume home meds. (7) Depression Qualifiers: Depression Type: major depressive disorder Active/Remission status: currently active Is this a current diagnosis for this admission?: Yes Plan: Denies any suicidal homicidal ideation. Complains of anxiety and insomnia. Home medications fluoxetine 20 mg every afternoon, patient is stating that she does not think that fluoxetine is helping. We will switch to Lexapro. We will also add mirtazapine 7.5 mg nightly which will also help her with insomnia. - Time Time Spent with patient: 35 or more minutes Anticipated Discharge Disposition: Home with Hospice Anticipated Discharge Timeframe: within 72 hours
[2020-11-02] MEDS ORDERED: PROMETHAZINE HCL INJ 25 MG/1 ML VIAL IV PRN (12:14)
[2020-11-02] MEDS ORDERED: PROMETHAZINE HCL 25 MG TABLET PO PRN (12:14)
[2020-11-02] MEDS: FLUTICASONE/UMECLIDIN/VILANTER 100-62.5-25 MCG/DOSE IH SCH (12:55)
[2020-11-02] MEDS: AZITHROMYCIN 500 MG in DEXTROSE 5%-WATER 250 ML IV SCH (13:56)
[2020-11-02] MEDS: TEMAZEPAM 15 MG CAPSULE PO SCH (17:08)
[2020-11-02] MEDS: MIRTAZAPINE 15 MG TABLET PO SCH (22:15)
[2020-11-03] MEDS: INSULIN REG, HUMAN 100 UNIT/ML 3 ML VIAL (PYX) SUBCUT SCH ×4 (00:39→17:45)
[2020-11-03] MEDS: CEFEPIME 1 GM/D5W RTU 1 GM/50 ML RTUPB IV SCH ×4 (02:10→21:51)
[2020-11-03] MEDS: LEVALBUTEROL HCL NEB 0.63 MG/3 ML AMPUL NEB SCH ×4 (02:37→20:08)
[2020-11-03] MEDS: ACETAMINOPHEN 325 MG TABLET PO PRN (04:41)
[2020-11-03 05:12] LABS: HEMATOCRIT 32.5 % (36.0-47.0); HEMOGLOBIN 10.7 g/dL (12.0-15.5); MEAN CORPUSCULAR HEMOGLOBIN 30.1 pg (27.0-33.4); MEAN CORPUSCULAR HGB CONC 32.9 g/dL (32.0-36.0); MEAN CORPUSCULAR VOLUME 92 fl (80-97); PLATELET COUNT 303 10^3/uL (150-450); RED BLOOD COUNT 3.55 10^6/uL (3.72-5.28); RED CELL DISTRIBUTION WIDTH 14.3 % (11.5-14.0); WHITE BLOOD COUNT 9.2 10^3/uL (4.0-10.5)
[2020-11-03 05:36] LABS: BLOOD UREA NITROGEN 24 mg/dL (7-20); CALCIUM 8.6 mg/dL (8.4-10.2); CHLORIDE 89 mmol/L (98-107); GLUCOSE 189 mg/dL (75-110); PHOSPHORUS 2.5 mg/dL (2.5-4.5); POTASSIUM 5.2 mmol/L (3.6-5.0)
[2020-11-03 05:41] LABS: CARBON DIOXIDE 35 mmol/L (22-30)
[2020-11-03] MEDS: METHYLPREDNISOLONE INJ 40 MG/1 ML SDV IV SCH (05:41)
[2020-11-03 05:42] LABS: ANION GAP 3 (5-19)
[2020-11-03] MEDS: LEVOTHYROXINE SODIUM 0.1 MG TABLET PO SCH (05:42)
[2020-11-03] MEDS: LORAZEPAM INJ 2 MG/1 ML VIAL IV PRN ×3 (08:28→23:25)
[2020-11-03] MEDS ORDERED: SODIUM POLYSTYRENE SULFONATE 15 GM/60 ML PO ONE (09:00)
[2020-11-03] MEDS: GABAPENTIN 300 MG CAPSULE PO SCH ×3 (09:10→17:29)
[2020-11-03] MEDS: HYDROCODONE/ACETAMINOPHEN 5-325 MG TABLET PO PRN (09:12)
[2020-11-03] MEDS: LACTOBACILLUS ACIDOPHILUS 250 MG TAB PO SCH (09:12)
[2020-11-03] MEDS: ATORVASTATIN CALCIUM 20 MG TABLET PO SCH (09:13)
[2020-11-03] MEDS: FAMOTIDINE 20 MG TABLET PO SCH ×2 (09:13→17:30)
[2020-11-03] MEDS: MAGNESIUM OXIDE 400 MG TABLET PO SCH (09:13)
[2020-11-03] MEDS: APIXABAN 5 MG TABLET PO SCH ×2 (09:54→17:30)
[2020-11-03] MEDS: SODIUM CHLORIDE 1 GM TABLET PO SCH ×2 (09:54→17:30)
[2020-11-03] MEDS: LOSARTAN POTASSIUM 50 MG TABLET PO SCH (09:55)
[2020-11-03] MEDS: ESCITALOPRAM OXALATE 10 MG TABLET PO SCH (09:55)
[2020-11-03] MEDS: PREDNISONE 20 MG TABLET PO SCH (09:55)
[2020-11-03] MEDS: AMLODIPINE BESYLATE 2.5 MG TABLET PO SCH ×2 (09:55→17:30)
[2020-11-03] MEDS: CALCIUM CARBONATE 600 MG TABLET PO SCH (09:55)
[2020-11-03] MEDS: FLECAINIDE ACETATE 100 MG TABLET PO SCH (09:55)
[2020-11-03] MEDS: FLUTICASONE/UMECLIDIN/VILANTER 100-62.5-25 MCG/DOSE IH SCH (09:57)
[2020-11-03] MEDS ORDERED: GUAIFENESIN/CODEINE PHOS 100-10 MG/ 5 ML UDC PO PRN (10:59)
--- NOTE | 2020-11-03 12:48 | PDOC PROGRESS REPORT ---
Subjective Date:: 11/03/20 Subjective:: 75-year-old female past medical history of atrial fibrillation oxygen dependent COPD, hypothyroidism, anxiety, presented to [facility] via EMS on 10/31/2020 being intubated at her facility after she was found unresponsive, as per admission note initially called EMS as patient was having difficulty breathing and requiring more oxygen. ICU was called, endotracheal tube switch, started on Solu-Medrol and taken to ICU. Patient successfully extubated yesterday and transferred to [facility]. 11/01/2020. No acute events overnight, saw patient this morning accompanied by her , not appear to be in any apparent distress, but appears to be very anxious and asking for Xanax, alert and oriented, cooperative with physical examination, answering questions appropriately, denies any chest pain, nausea, vomiting, diarrhea, constipation or any urinary symptoms. 11/02/2020. No acute events overnight, patient reporting improvement of her anxiety, and back pain, denies any fever, chills, nausea, vomiting, noted to have worsening hypercarbia and worsening hyponatremia. 11/03/2020. No acute events overnight. Patient reports having frequent panic attacks. She can frequently desaturates when having panic attacks otherwise SPO2 is WNL on 2 L nasal cannula, she used BiPAP for 4 hours last night, unfortunately her CO2 is still 35, she had a better night sleep since was a started on mirtazapine, denies any chest pain, fever, chills, nausea, vomiting, diarrhea, constipation or any urinary symptoms. Possible discharge home tomorrow. Reason For Visit: ACUTE RESPIRATORY FAILURE WITH HYPERCAPRINA Physical Exam Vital Signs: Temp Pulse Resp BP Pulse Ox 99.3 F 72 18 158/74 H 94 11/03/20 10:00 11/03/20 07:58 11/03/20 07:58 11/03/20 07:33 11/03/20 07:58 Intake & Output 11/02/20 11/03/20 11/04/20 06:59 06:59 06:59 Intake Total 1050 1152 50 Output Total 825 1325 Balance 225 -173 50 Weight 104.1 kg 65.5 kg General appearance: PRESENT: no acute distress, obese, well-developed, well- nourished Head exam: PRESENT: atraumatic, normocephalic Respiratory exam: PRESENT: clear to auscultation lavern, prolonged expiratory phas, tachypnea. ABSENT: rales, rhonchi, wheezes Cardiovascular exam: PRESENT: RRR. ABSENT: diastolic murmur, rubs, systolic murmur GI/Abdominal exam: PRESENT: normal bowel sounds, soft. ABSENT: distended, g uarding, mass, organolmegaly, rebound, tenderness Neurological exam: PRESENT: alert, awake, oriented to person, oriented to place, oriented to time, oriented to situation, CN II-XII grossly intact. ABSENT: motor sensory deficit Psychiatric exam: PRESENT: anxious Results Laboratory Results: 11/03/20 04:36 11/03/20 04:36 11/03/20 11/03/20 04:36 04:36 WBC 9.2 RBC 3.55 L Hgb 10.7 L Hct 32.5 L MCV 92 MCH 30.1 MCHC 32.9 RDW 14.3 H Plt Count 303 Sodium 127.4 L Potassium 5.2 H Chloride 89 L Carbon Dioxide 35 H Anion Gap 3 L BUN 24 H Creatinine 0.52 Est GFR ( Amer) > 60 Glucose 189 H Calcium 8.6 Phosphorus 2.5 10/31/20 11:53 Tracheal Aspirate Gram Stain - Final 10/31/20 00:37 Troponin I < 0.012 NT-Pro-B Natriuret Pep 563 H Impressions: Chest X-Ray 11/01/20 06:00 IMPRESSION: MINIMAL INTERSTITIAL PROMINENCE. MAY BE CHRONIC. NO ACUTE FINDINGS. Assessment and Plan - Diagnosis (1) Acute on chronic respiratory failure with hypoxia and hypercapnia Is this a current diagnosis for this admission?: Yes Plan: Significant improvement. SPO2 WNL on 2 L nasal cannula. Persistent hypercarbia. Most likely to severe acute COPD exacerbation. Intubated on 10/30/2020 at home. Successfully extubated on 10/31/2020. Continue BiPAP, DuoNebs, LAMA, LABA, ICS, steroids, flutter valve, incentive spirometry, pulmonary toileting. (2) Atrial fibrillation Qualifiers: Atrial fibrillation type: permanent Qualified Code(s): I48.21 - Permanent atrial fibrillation Is this a current diagnosis for this admission?: Yes Plan: History of chronic persistent atrial fibrillation. Rate controlled. Anticoagulated. Resume home meds. Outpatient PCP and cardiology follow-up. (3) Anxiety Is this a current diagnosis for this admission?: Yes Plan: History of anxiety, takes Xanax at home. Having frequent panic attacks. Stating that she was started on Klonopin which did not help. He was also started on BuSpar with no significant improvement of her panic attacks. Continue benzodiazepines. Fall precautions. Outpatient PCP and psychiatry follow-up. (4) COPD exacerbation Is this a current diagnosis for this admission?: Yes Plan: History of oxygen dependent COPD. Plan as per #1. (5) Chronic back pain Qualifiers: Back pain location: back pain in unspecified location Back pain laterality: unspecified Qualified Code(s): M54.9 - Dorsalgia, unspecified; G89.29 - Other chronic pain Is this a current diagnosis for this admission?: Yes Plan: Chronic back pain opioid dependent. Resume home meds. (6) Hypothyroidism Qualifiers: Hypothyroidism type: unspecified Qualified Code(s): E03.9 - Hypothyroidism, unspecified Is this a current diagnosis for this admission?: Yes Plan: Resume home meds. (7) Depression Qualifiers: Depression Type: major depressive disorder Active/Remission status: currently active Is this a current diagnosis for this admission?: Yes Plan: Denies any suicidal homicidal ideation. Reporting improvement of her insomnia since being started on mirtazapine. Home medications fluoxetine 20 mg every afternoon, patient is stating that she does not think that fluoxetine is helping. Continue Lexapro and mirtazapine. - Time Time Spent with patient: 35 or more minutes Anticipated Discharge Disposition: Home with Home Health Anticipated Discharge Timeframe: within 24 hours
[2020-11-03] MEDS: AZITHROMYCIN 500 MG in DEXTROSE 5%-WATER 250 ML IV SCH (14:11)
[2020-11-03] MEDS: TEMAZEPAM 15 MG CAPSULE PO SCH (17:30)
[2020-11-03] MEDS: MIRTAZAPINE 15 MG TABLET PO SCH (21:50)
[2020-11-04] MEDS: INSULIN REG, HUMAN 100 UNIT/ML 3 ML VIAL (PYX) SUBCUT SCH ×2 (01:04→05:45)
[2020-11-04 01:13] LABS: APPEARANCE,URINE CLEAR; BILIRUBIN,URINE NEGATIVE (NEGATIVE); COLOR,URINE STRAW; GLUCOSE, URINE NEGATIVE (NEGATIVE); KETONES,URINE NEGATIVE (NEGATIVE); LEUKOCYTE ESTERASE,URINE NEGATIVE (NEGATIVE); NITRITE,URINE NEGATIVE (NEGATIVE); PROTEIN,URINE 30 mg/dL (NEGATIVE); URINE SPECIFIC GRAVITY 1.011; UROBILINOGEN,URINE NEGATIVE mg/dL (<2.0)
[2020-11-04] MEDS: LEVALBUTEROL HCL NEB 0.63 MG/3 ML AMPUL NEB SCH ×4 (02:21→21:44)
[2020-11-04] MEDS: CEFEPIME 1 GM/D5W RTU 1 GM/50 ML RTUPB IV SCH ×4 (02:37→22:32)
[2020-11-04] MEDS: ONDANSETRON HCL INJ/PF 4 MG/2 ML SDV IV PRN (04:11)
[2020-11-04] MEDS: HYDROCODONE/ACETAMINOPHEN 5-325 MG TABLET PO PRN (04:11)
[2020-11-04 05:22] LABS: ABSOLUTE LYMPHOCYTES (AUTO) 1.1 10^3/uL (0.5-4.7); ABSOLUTE MONOCYTES (AUTO) 1.1 10^3/uL (0.1-1.4); ABSOLUTE NEUT (AUTO) 6.6 10^3/uL (1.7-8.2); BASOPHILS % (AUTO) 0.1 % (0-2); HEMATOCRIT 32.3 % (36.0-47.0); HEMOGLOBIN 10.7 g/dL (12.0-15.5); LYMPHOCYTES % (AUTO) 12.3 % (13-45); MEAN CORPUSCULAR VOLUME 91 fl (80-97); MONOCYTES % (AUTO) 12.1 % (3-13); PLATELET COUNT 329 10^3/uL (150-450); RED BLOOD COUNT 3.55 10^6/uL (3.72-5.28); RED CELL DISTRIBUTION WIDTH 14.1 % (11.5-14.0); SEGMENTED NEUTROPHILS % (AUTO) 75.5 % (42-78); TOTAL CELLS COUNTED % (AUTO) 100 %; WHITE BLOOD COUNT 8.7 10^3/uL (4.0-10.5)
[2020-11-04] MEDS: LEVOTHYROXINE SODIUM 0.1 MG TABLET PO SCH (05:45)
[2020-11-04 05:46] LABS: ANION GAP 6 (5-19); BLOOD UREA NITROGEN 23 mg/dL (7-20); CALCIUM 8.6 mg/dL (8.4-10.2); CARBON DIOXIDE 36 mmol/L (22-30); CHLORIDE 90 mmol/L (98-107); GLUCOSE 127 mg/dL (75-110)
[2020-11-04 08:05] LABS: ARTERIAL BLOOD BASE EXCESS 10.9 mmol/L; ARTERIAL BLOOD H2CO3 1.84 mmol/L (1.05-1.35); ARTERIAL BLOOD HCO3 37.6 mmol/L (20-24); ARTERIAL BLOOD O2 SATURATION 98.5 % (94-98); ARTERIAL BLOOD PCO2 61.2 mmHg (35-45); ARTERIAL BLOOD PH 7.41 (7.35-7.45); ARTERIAL BLOOD PO2 127.8 mmHg (80-100); ARTERIAL BLOOD TOTAL CO2 39.5 mmol/L (21-25)
[2020-11-04 08:06] LABS: ARTERIAL BLOOD FIO2 32%
[2020-11-04] MEDS: FLECAINIDE ACETATE 100 MG TABLET PO SCH (09:27)
[2020-11-04] MEDS: LACTOBACILLUS ACIDOPHILUS 250 MG TAB PO SCH (09:27)
[2020-11-04] MEDS: SODIUM CHLORIDE 1 GM TABLET PO SCH ×2 (09:27→17:10)
[2020-11-04] MEDS: FAMOTIDINE 20 MG TABLET PO SCH ×2 (09:27→17:10)
[2020-11-04] MEDS: CALCIUM CARBONATE 600 MG TABLET PO SCH (09:27)
[2020-11-04] MEDS: AMLODIPINE BESYLATE 2.5 MG TABLET PO SCH ×2 (09:27→17:10)
[2020-11-04] MEDS: LOSARTAN POTASSIUM 50 MG TABLET PO SCH (09:27)
[2020-11-04] MEDS: LABETALOL HCL 200 MG TABLET PO SCH (09:28)
[2020-11-04] MEDS: MAGNESIUM OXIDE 400 MG TABLET PO SCH (09:28)
[2020-11-04] MEDS: PREDNISONE 20 MG TABLET PO SCH (09:28)
[2020-11-04] MEDS: ATORVASTATIN CALCIUM 20 MG TABLET PO SCH (09:28)
[2020-11-04] MEDS: APIXABAN 5 MG TABLET PO SCH ×2 (09:28→17:10)
[2020-11-04] MEDS: GABAPENTIN 300 MG CAPSULE PO SCH ×3 (09:28→17:10)
[2020-11-04] MEDS: ESCITALOPRAM OXALATE 10 MG TABLET PO SCH (09:28)
[2020-11-04] MEDS: LORAZEPAM INJ 2 MG/1 ML VIAL IV PRN (09:29)
[2020-11-04] MEDS: FLUTICASONE/UMECLIDIN/VILANTER 100-62.5-25 MCG/DOSE IH SCH (09:42)
[2020-11-04] MEDS ORDERED: MEDROXYPROGESTERONE ACET 2.5 MG TABLET PO SCH (10:00)
[2020-11-04] MEDS: AZITHROMYCIN 500 MG in DEXTROSE 5%-WATER 250 ML IV SCH (14:54)
--- NOTE | 2020-11-04 16:47 | PDOC PROGRESS REPORT ---
Subjective Date:: 11/04/20 Subjective:: 75-year-old female past medical history of atrial fibrillation oxygen dependent COPD, hypothyroidism, anxiety, presented to [facility] via EMS on 10/31/2020 being intubated at her facility after she was found unresponsive, as per admission note initially called EMS as patient was having difficulty breathing and requiring more oxygen. ICU was called, endotracheal tube switch, started on Solu-Medrol and taken to ICU. Patient successfully extubated yesterday and transferred to [facility]. 11/01/2020. No acute events overnight, saw patient this morning accompanied by her , not appear to be in any apparent distress, but appears to be very anxious and asking for Xanax, alert and oriented, cooperative with physical examination, answering questions appropriately, denies any chest pain, nausea, vomiting, diarrhea, constipation or any urinary symptoms. 11/02/2020. No acute events overnight, patient reporting improvement of her anxiety, and back pain, denies any fever, chills, nausea, vomiting, noted to have worsening hypercarbia and worsening hyponatremia. 11/03/2020. No acute events overnight. Patient reports having frequent panic attacks. She can frequently desaturates when having panic attacks otherwise SPO2 is WNL on 2 L nasal cannula, she used BiPAP for 4 hours last night, unfortunately her CO2 is still 35, she had a better night sleep since was a started on mirtazapine, denies any chest pain, fever, chills, nausea, vomiting, diarrhea, constipation or any urinary symptoms. Possible discharge home tomorrow. 11/04/2020. No acute events overnight. Patient reports mild improvement however stating that she is not back to baseline, she gets short of breath when she exerts herself, otherwise denies any chest pain, fever, nausea, vomiting, diarrhea, constipation or any urinary symptoms. Patient is still hypercarbic however when records obtained from [facility] from recent hospitalization seems like patient has history of persistent hypercarbia. Reason For Visit: ACUTE RESPIRATORY FAILURE WITH HYPERCAPRINA Physical Exam Vital Signs: Temp Pulse Resp BP Pulse Ox 98.5 F 68 16 110/46 L 98 11/04/20 11:15 11/04/20 14:00 11/04/20 11:15 11/04/20 11:15 11/04/20 11:15 Intake & Output 0111/04/20 11/05/20 06:59 06:59 06:59 Intake Total 1152 1310 830 Output Total 1325 300 400 Balance -173 1010 430 Weight 65.5 kg 66.1 kg 66.1 kg General appearance: PRESENT: no acute distress, well-developed, well-nourished Head exam: PRESENT: atraumatic, normocephalic Respiratory exam: PRESENT: clear to auscultation lavern, other - Shallow breathing, does not move much air.. ABSENT: rales, rhonchi, wheezes Cardiovascular exam: PRESENT: RRR. ABSENT: diastolic murmur, rubs, systolic murmur GI/Abdominal exam: PRESENT: normal bowel sounds, soft. ABSENT: distended, guarding, mass, organolmegaly, rebound, tenderness Neurological exam: PRESENT: alert, awake, oriented to person, oriented to place, oriented to time, oriented to situation, CN II-XII grossly intact. ABSENT: motor sensory deficit Results Laboratory Results: 11/04/20 04:28 11/04/20 04:28 11/04/20 11/04/20 11/04/20 00:55 04:28 04:28 WBC 8.7 RBC 3.55 L Hgb 10.7 L Hct 32.3 L MCV 91 MCH 30.0 MCHC 33.0 RDW 14.1 H Plt Count 329 Seg Neutrophils % 75.5 Carbonic Acid HCO3/H2CO3 Ratio ABG pH ABG pCO2 ABG pO2 ABG HCO3 ABG O2 Saturation ABG Base Excess FiO2 Sodium 131.5 L Potassium 4.0 D Chloride 90 L Carbon Dioxide 36 H Anion Gap 6 BUN 23 H Creatinine 0.54 Est GFR ( Amer) > 60 Glucose 127 H Calcium 8.6 Urine Color STRAW Urine Appearance CLEAR Urine pH 6.0 Ur Specific [place] 1.011 Urine Protein 30 H Urine Glucose (UA) NEGATIVE Urine Ketones NEGATIVE Urine Blood LARGE H Urine Nitrite NEGATIVE Ur Leukocyte Esterase NEGATIVE Urine WBC (Auto) 2 Urine RBC (Auto) 16 11/04/20 07:47 WBC RBC Hgb Hct MCV MCH MCHC RDW Plt Count Seg Neutrophils % Carbonic Acid 1.84 H HCO3/H2CO3 Ratio 20:1 ABG pH 7.41 ABG pCO2 61.2 H ABG pO2 127.8 H ABG HCO3 37.6 H ABG O2 Saturation 98.5 H ABG Base Excess 10.9 FiO2 32% Sodium Potassium Chloride Carbon Dioxide Anion Gap BUN Creatinine Est GFR ( Amer) Glucose Calcium Urine Color Urine Appearance Urine pH Ur Specific [place] Urine Protein Urine Glucose (UA) Urine Ketones Urine Blood Urine Nitrite Ur Leukocyte Esterase Urine WBC (Auto) Urine RBC (Auto) 10/31/20 11:53 Tracheal Aspirate Gram Stain - Final 10/31/20 11:53 Tracheal Aspirate Sputum Culture - Final NORMAL SHAHANA 10/31/20 00:37 Troponin I < 0.012 NT-Pro-B Natriuret Pep 563 H Impressions: Chest X-Ray 11/01/20 06:00 IMPRESSION: MINIMAL INTERSTITIAL PROMINENCE. MAY BE CHRONIC. NO ACUTE FINDINGS. Assessment and Plan - Diagnosis (1) Acute on chronic respiratory failure with hypoxia and hypercapnia Is this a current diagnosis for this admission?: Yes Plan: Significant improvement. SPO2 WNL on 2 L nasal cannula. Persistent hypercarbia. Most likely to severe acute COPD exacerbation. Intubated on 10/30/2020 at home. Successfully extubated on 10/31/2020. Review of records from [facility] showed that patient's bicarb normally runs between 2 33-38. Continue BiPAP, DuoNebs, LAMA, LABA, ICS, steroids, flutter valve, incentive spirometry, pulmonary toileting. Patient noted to be having a habit of shallow breathing. Patient was educated on proper breathing technique. (2) Atrial fibrillation Qualifiers: Atrial fibrillation type: permanent Qualified Code(s): I48.21 - Permanent atrial fibrillation Is this a current diagnosis for this admission?: Yes Plan: History of chronic persistent atrial fibrillation. Rate controlled. Anticoagulated. Resume home meds. Outpatient PCP and cardiology follow-up. (3) Anxiety Is this a current diagnosis for this admission?: Yes Plan: History of anxiety, takes Xanax at home. Having frequent panic attacks. Stating that she was started on Klonopin which did not help. He was also started on BuSpar with no significant improvement of her panic attacks. Continue benzodiazepines. Fall precautions. Outpatient PCP and psychiatry follow-up. (4) COPD exacerbation Is this a current diagnosis for this admission?: Yes Plan: History of oxygen dependent COPD. Plan as per #1. (5) Chronic back pain Qualifiers: Back pain location: back pain in unspecified location Back pain laterality: unspecified Qualified Code(s): M54.9 - Dorsalgia, unspecified; G89.29 - Other chronic pain Is this a current diagnosis for this admission?: Yes Plan: Chronic back pain opioid dependent. Resume home meds. (6) Hypothyroidism Qualifiers: Hypothyroidism type: unspecified Qualified Code(s): E03.9 - Hypothyroidism, unspecified Is this a current diagnosis for this admission?: Yes Plan: Resume home meds. (7) Depression Qualifiers: Depression Type: major depressive disorder Active/Remission status: currently active Is this a current diagnosis for this admission?: Yes Plan: Denies any suicidal homicidal ideation. Reporting improvement of her insomnia since being started on mirtazapine. Home medications fluoxetine 20 mg every afternoon, patient is stating that she does not think that fluoxetine is helping. Continue Lexapro and mirtazapine. 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 Improving. - Time Time Spent with patient: 35 or more minutes Anticipated Discharge Disposition: Home, Self Care Anticipated Discharge Timeframe: within 24 hours
[2020-11-04] MEDS: TEMAZEPAM 15 MG CAPSULE PO SCH (17:10)
[2020-11-04] MEDS: MIRTAZAPINE 15 MG TABLET PO SCH (22:32)
[2020-11-05] MEDS: CEFEPIME 1 GM/D5W RTU 1 GM/50 ML RTUPB IV SCH ×4 (03:11→22:00)
[2020-11-05] MEDS: LEVALBUTEROL HCL NEB 0.63 MG/3 ML AMPUL NEB SCH ×4 (03:41→20:01)
[2020-11-05] MEDS: LEVOTHYROXINE SODIUM 0.1 MG TABLET PO SCH (05:15)
[2020-11-05 06:18] LABS: BLOOD UREA NITROGEN 24 mg/dL (7-20); CALCIUM 9.2 mg/dL (8.4-10.2); CARBON DIOXIDE 36 mmol/L (22-30); CHLORIDE 90 mmol/L (98-107); GLUCOSE 100 mg/dL (75-110); POTASSIUM 4.6 mmol/L (3.6-5.0)
[2020-11-05 06:21] LABS: ANION GAP 4 (5-19)
[2020-11-05 07:09] LABS: APPEARANCE,URINE CLEAR; BILIRUBIN,URINE NEGATIVE (NEGATIVE); COLOR,URINE STRAW; GLUCOSE, URINE NEGATIVE (NEGATIVE); KETONES,URINE NEGATIVE (NEGATIVE); LEUKOCYTE ESTERASE,URINE NEGATIVE (NEGATIVE); NITRITE,URINE NEGATIVE (NEGATIVE); PROTEIN,URINE NEGATIVE (NEGATIVE); URINE SPECIFIC GRAVITY 1.009; UROBILINOGEN,URINE NEGATIVE mg/dL (<2.0)
[2020-11-05] MEDS: LORAZEPAM INJ 2 MG/1 ML VIAL IV PRN (08:38)
[2020-11-05] MEDS: LACTOBACILLUS ACIDOPHILUS 250 MG TAB PO SCH (09:10)
[2020-11-05] MEDS: FAMOTIDINE 20 MG TABLET PO SCH ×2 (09:10→18:01)
[2020-11-05] MEDS: PREDNISONE 20 MG TABLET PO SCH (09:10)
[2020-11-05] MEDS: LOSARTAN POTASSIUM 50 MG TABLET PO SCH (09:10)
[2020-11-05] MEDS: APIXABAN 5 MG TABLET PO SCH ×2 (09:10→18:01)
[2020-11-05] MEDS: GABAPENTIN 300 MG CAPSULE PO SCH ×3 (09:10→18:01)
[2020-11-05] MEDS: ATORVASTATIN CALCIUM 20 MG TABLET PO SCH (09:11)
[2020-11-05] MEDS: SODIUM CHLORIDE 1 GM TABLET PO SCH ×2 (10:01→18:01)
[2020-11-05] MEDS: FLECAINIDE ACETATE 100 MG TABLET PO SCH (10:02)
[2020-11-05] MEDS: CALCIUM CARBONATE 600 MG TABLET PO SCH (10:02)
[2020-11-05] MEDS: ESCITALOPRAM OXALATE 10 MG TABLET PO SCH (10:02)
[2020-11-05] MEDS: LABETALOL HCL 200 MG TABLET PO SCH (10:02)
[2020-11-05] MEDS: AMLODIPINE BESYLATE 2.5 MG TABLET PO SCH ×2 (10:02→18:01)
[2020-11-05] MEDS: MAGNESIUM OXIDE 400 MG TABLET PO SCH (10:02)
[2020-11-05] MEDS: FLUTICASONE/UMECLIDIN/VILANTER 100-62.5-25 MCG/DOSE IH SCH (10:10)
[2020-11-05] MEDS: ACETAMINOPHEN 325 MG TABLET PO PRN (12:33)
[2020-11-05] MEDS: AZITHROMYCIN 500 MG in DEXTROSE 5%-WATER 250 ML IV SCH (13:42)
[2020-11-05] MEDS: HYDROCODONE/ACETAMINOPHEN 5-325 MG TABLET PO PRN ×2 (13:42→22:24)
[2020-11-05] MEDS: ONDANSETRON HCL INJ/PF 4 MG/2 ML SDV IV PRN (13:42)
--- NOTE | 2020-11-05 14:33 | PDOC PROGRESS REPORT ---
Subjective Date:: 11/05/20 Subjective:: 75-year-old female past medical history of atrial fibrillation oxygen dependent COPD, hypothyroidism, anxiety, presented to [facility] via EMS on 10/31/2020 being intubated at her facility after she was found unresponsive, as per admission note initially called EMS as patient was having difficulty breathing and requiring more oxygen. ICU was called, endotracheal tube switch, started on Solu-Medrol and taken to ICU. Patient successfully extubated yesterday and transferred to [facility]. 11/01/2020. No acute events overnight, saw patient this morning accompanied by her , not appear to be in any apparent distress, but appears to be very anxious and asking for Xanax, alert and oriented, cooperative with physical examination, answering questions appropriately, denies any chest pain, nausea, vomiting, diarrhea, constipation or any urinary symptoms. 11/02/2020. No acute events overnight, patient reporting improvement of her anxiety, and back pain, denies any fever, chills, nausea, vomiting, noted to have worsening hypercarbia and worsening hyponatremia. 11/03/2020. No acute events overnight. Patient reports having frequent panic attacks. She can frequently desaturates when having panic attacks otherwise SPO2 is WNL on 2 L nasal cannula, she used BiPAP for 4 hours last night, unfortunately her CO2 is still 35, she had a better night sleep since was a started on mirtazapine, denies any chest pain, fever, chills, nausea, vomiting, diarrhea, constipation or any urinary symptoms. Possible discharge home tomorrow. 11/04/2020. No acute events overnight. Patient reports mild improvement however stating that she is not back to baseline, she gets short of breath when she exerts herself, otherwise denies any chest pain, fever, nausea, vomiting, diarrhea, constipation or any urinary symptoms. Patient is still hypercarbic however when records obtained from [facility] from recent hospitalization seems like patient has history of persistent hypercarbia. 11/05/2020. No acute events noted. Unfortunate patient not compliant with her BiPAP, stating that she had a good night sleep, still does not feel like she is at her baseline, gets anxious and short of breath when exerting herself, denies any fever, chills, nausea, vomiting. Possible discharge home. Patient advised on BiPAP adherence. Reason For Visit: ACUTE RESPIRATORY FAILURE WITH HYPERCAPRINA Physical Exam Vital Signs: Temp Pulse Resp BP Pulse Ox 98.2 F 68 14 146/56 H 95 11/05/20 07:53 11/05/20 14:17 11/05/20 14:17 11/05/20 07:34 11/05/20 14:17 Intake & Output 11/04/20 11/05/20 11/06/20 06:59 06:59 06:59 Intake Total 1310 1230 50 Output Total 300 600 Balance 1010 630 50 Weight 66.1 kg 69.6 kg General appearance: PRESENT: no acute distress, obese, well-developed, well- nourished Head exam: PRESENT: atraumatic, normocephalic Respiratory exam: PRESENT: clear to auscultation lavern, other - Shallow breathing. ABSENT: rales, rhonchi, wheezes Cardiovascular exam: PRESENT: RRR. ABSENT: diastolic murmur, rubs, systolic murmur GI/Abdominal exam: PRESENT: normal bowel sounds, soft. ABSENT: distended, guarding, mass, organolmegaly, rebound, tenderness Neurological exam: PRESENT: alert, awake, oriented to person, oriented to place, oriented to time, oriented to situation, CN II-XII grossly intact. ABSENT: motor sensory deficit Results Laboratory Results: 11/04/20 04:28 11/05/20 05:34 11/05/20 11/05/20 05:34 06:42 Sodium 129.6 L Potassium 4.6 Chloride 90 L Carbon Dioxide 36 H Anion Gap 4 L BUN 24 H Creatinine 0.54 Est GFR ( Amer) > 60 Glucose 100 Calcium 9.2 Urine Color STRAW Urine Appearance CLEAR Urine pH 6.0 Ur Specific [place] 1.009 Urine Protein NEGATIVE Urine Glucose (UA) NEGATIVE Urine Ketones NEGATIVE Urine Blood SMALL H Urine Nitrite NEGATIVE Ur Leukocyte Esterase NEGATIVE Urine WBC (Auto) 1 Urine RBC (Auto) 3 10/31/20 02:06 Blood Blood Culture - Final NO GROWTH IN 5 DAYS 10/31/20 00:37 Blood Blood Culture - Final NO GROWTH IN 5 DAYS 10/31/20 11:53 Tracheal Aspirate Gram Stain - Final 10/31/20 11:53 Tracheal Aspirate Sputum Culture - Final NORMAL SHAHANA 10/31/20 00:37 Troponin I < 0.012 NT-Pro-B Natriuret Pep 563 H Impressions: Chest X-Ray 11/01/20 06:00 IMPRESSION: MINIMAL INTERSTITIAL PROMINENCE. MAY BE CHRONIC. NO ACUTE FINDINGS. Assessment and Plan - Diagnosis (1) Acute on chronic respiratory failure with hypoxia and hypercapnia Is this a current diagnosis for this admission?: Yes Plan: Significant improvement. SPO2 WNL on 2 L nasal cannula. Persistent hypercarbia. Most likely to severe acute COPD exacerbation. Intubated on 10/30/2020 at home. Successfully extubated on 10/31/2020. Review of records from [facility] showed that patient's bicarb normally runs between 33-38. Continue BiPAP, DuoNebs, LAMA, LABA, ICS, steroids, flutter valve, incentive spirometry, pulmonary toileting. Patient noted to be having a habit of shallow breathing. Patient was educated on proper breathing technique. (2) Atrial fibrillation Qualifiers: Atrial fibrillation type: permanent Qualified Code(s): I48.21 - Permanent atrial fibrillation Is this a current diagnosis for this admission?: Yes Plan: History of chronic persistent atrial fibrillation. Rate controlled. Anticoagulated. Resume home meds. Outpatient PCP and cardiology follow-up. (3) Anxiety Is this a current diagnosis for this admission?: Yes Plan: History of anxiety, takes Xanax at home. Having frequent panic attacks. Stating that she was started on Klonopin which did not help. He was also started on BuSpar with no significant improvement of her panic attacks. Continue benzodiazepines. Fall precautions. Outpatient PCP and psychiatry follow-up. (4) COPD exacerbation Is this a current diagnosis for this admission?: Yes Plan: History of oxygen dependent COPD. Plan as per #1. (5) Chronic back pain Qualifiers: Back pain location: back pain in unspecified location Back pain laterality: unspecified Qualified Code(s): M54.9 - Dorsalgia, unspecified; G89.29 - Other chronic pain Is this a current diagnosis for this admission?: Yes Plan: Chronic back pain opioid dependent. Resume home meds. (6) Hypothyroidism Qualifiers: Hypothyroidism type: unspecified Qualified Code(s): E03.9 - Hypothyroidism, unspecified Is this a current diagnosis for this admission?: Yes Plan: Resume home meds. (7) Depression Qualifiers: Depression Type: major depressive disorder Active/Remission status: currently active Is this a current diagnosis for this admission?: Yes Plan: Denies any suicidal homicidal ideation. Reporting improvement of her insomnia since being started on mirtazapine. Home medications fluoxetine 20 mg every afternoon, patient is stating that she does not think that fluoxetine is helping. Continue Lexapro and mirtazapine. 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 Improving. Urine sodium <20. Denies any nausea vomiting or diarrhea. Review of records from [facility] shows that patient has chronic persistent hyponatremia. Her average sodium is on record review is 129-130. - Time Time Spent with patient: 35 or more minutes Anticipated Discharge Disposition: Home, Self Care Anticipated Discharge Timeframe: within 24 hours
[2020-11-05] MEDS: TEMAZEPAM 15 MG CAPSULE PO SCH (18:01)
[2020-11-05] MEDS: MIRTAZAPINE 15 MG TABLET PO SCH (22:24)
[2020-11-06] MEDS: LEVALBUTEROL HCL NEB 0.63 MG/3 ML AMPUL NEB SCH ×2 (02:30→08:10)
[2020-11-06] MEDS: CEFEPIME 1 GM/D5W RTU 1 GM/50 ML RTUPB IV SCH ×2 (03:16→09:53)
[2020-11-06] MEDS: LEVOTHYROXINE SODIUM 0.1 MG TABLET PO SCH (05:19)
[2020-11-06 06:13] LABS: BLOOD UREA NITROGEN 24 mg/dL (7-20); CALCIUM 8.9 mg/dL (8.4-10.2); CHLORIDE 90 mmol/L (98-107); GLUCOSE 83 mg/dL (75-110); POTASSIUM 4.6 mmol/L (3.6-5.0)
[2020-11-06 06:20] LABS: CARBON DIOXIDE 37 mmol/L (22-30)
[2020-11-06 06:27] LABS: ANION GAP 3 (5-19)
[2020-11-06 06:43] LABS: ARTERIAL BLOOD BASE EXCESS 9.5 mmol/L; ARTERIAL BLOOD H2CO3 1.69 mmol/L (1.05-1.35); ARTERIAL BLOOD HCO3 35.4 mmol/L (20-24); ARTERIAL BLOOD O2 SATURATION 97.9 % (94-98); ARTERIAL BLOOD PH 7.42 (7.35-7.45); ARTERIAL BLOOD PO2 108.8 mmHg (80-100); ARTERIAL BLOOD TOTAL CO2 37.1 mmol/L (21-25)
[2020-11-06 07:00] LABS: ARTERIAL BLOOD FIO2 30%
[2020-11-06] MEDS: LORAZEPAM INJ 2 MG/1 ML VIAL IV PRN (07:39)
[2020-11-06 09:16] VITALS: BP 141/64
[2020-11-06] MEDS: HYDROCODONE/ACETAMINOPHEN 5-325 MG TABLET PO PRN (09:23)
[2020-11-06] MEDS: LOSARTAN POTASSIUM 50 MG TABLET PO SCH (09:53)
[2020-11-06] MEDS: ESCITALOPRAM OXALATE 10 MG TABLET PO SCH (09:53)
[2020-11-06] MEDS: LACTOBACILLUS ACIDOPHILUS 250 MG TAB PO SCH (09:53)
[2020-11-06] MEDS: APIXABAN 5 MG TABLET PO SCH (09:53)
[2020-11-06] MEDS: PREDNISONE 20 MG TABLET PO SCH (09:53)
[2020-11-06] MEDS: CALCIUM CARBONATE 600 MG TABLET PO SCH (09:53)
[2020-11-06] MEDS: ATORVASTATIN CALCIUM 20 MG TABLET PO SCH (09:54)
[2020-11-06] MEDS: GABAPENTIN 300 MG CAPSULE PO SCH (09:54)
[2020-11-06] MEDS: MAGNESIUM OXIDE 400 MG TABLET PO SCH (09:54)
[2020-11-06] MEDS: FLUTICASONE/UMECLIDIN/VILANTER 100-62.5-25 MCG/DOSE IH SCH (09:55)
[2020-11-06] MEDS: SODIUM CHLORIDE 1 GM TABLET PO SCH (09:55)
[2020-11-06] MEDS: AMLODIPINE BESYLATE 2.5 MG TABLET PO SCH (09:55)
[2020-11-06] MEDS: FLECAINIDE ACETATE 100 MG TABLET PO SCH (09:55)
[2020-11-06] MEDS: FAMOTIDINE 20 MG TABLET PO SCH (09:55)
[2020-11-06] MEDS: LABETALOL HCL 200 MG TABLET PO SCH (09:55)
--- NOTE | 2020-11-07 16:04 | PDOC DISCHARGE SUMMARY ---
Impression - Admit/DC Date/PCP Admission Date/Primary Care Provider: 10/31/20 05:48 Discharge Date: 11/06/19 - Discharge Diagnosis (1) Acute on chronic respiratory failure with hypoxia and hypercapnia Is this a current diagnosis for this admission?: Yes (2) Atrial fibrillation Is this a current diagnosis for this admission?: Yes (3) Anxiety Is this a current diagnosis for this admission?: Yes (4) COPD exacerbation Is this a current diagnosis for this admission?: Yes (5) Chronic back pain Is this a current diagnosis for this admission?: Yes (6) Hypothyroidism Is this a current diagnosis for this admission?: Yes (7) Depression Is this a current diagnosis for this admission?: Yes (8) Hyponatremia Is this a current diagnosis for this admission?: Yes - Additional Information Discharge Diet: As Tolerated Discharge Activity: Activity As Tolerated Referrals: DANIA CASTELLANO MD [NO LOCAL MD] - 11/16/20 (Pt has follow up with provider within 2 weeks) Prescriptions: Escitalopram Oxalate [Lexapro 10 mg Tablet] 10 mg PO QHS 30 Days #30 tablet Mirtazapine [Remeron 15 mg Tablet] 7.5 mg PO QHS 30 Days #15 tablet Home Medications: Acebutolol HCl 200 mg PO DAILY 10/31/20 Acetaminophen [Aphen] 650 mg PO Q6HP PRN 10/31/20 Albuterol Sulfate [Ventolin Hfa 8 gm Mdi] 2 puff IH Q4HP PRN 10/31/20 Alprazolam [Xanax 0.5 mg Tablet] 0.5 mg PO BIDP PRN 10/31/20 Amlodipine Besylate [Norvasc 2.5 mg Tablet] 2.5 mg PO BID 10/31/20 Apixaban [Eliquis 5 mg Tablet] 5 mg PO BID 10/31/20 Ascorbic Acid [Vitamin C 500 mg Tablet] 1,000 mg PO DAILY 10/31/20 Atorvastatin Calcium [Lipitor 20 mg Tablet] 20 mg PO DAILY 10/31/20 Calcium Carbonate [Calcium] 600 mg PO DAILY 10/31/20 Cholecalciferol (Vitamin D3) [Vitamin D3 1000 Unit Tablet] 4,000 unit PO DAILY 10/31/20 Flecainide Acetate [Tambocor 100 mg Tablet] 100 mg PO DAILY 10/31/20 Fluticasone/Umeclidin/Vilanter [Trelegy 100-62.5-25 Mcg Ellipta 14 Dose/Dpi] 1 puff IH DAILY 10/31/20 Gabapentin 300 mg PO TID 10/31/20 Hydrocodone/Acetaminophen [[place] 5-325 mg Tablet] 1 tab PO BIDP PRN 10/31/20 Ipratropium/Albuterol Sulfate [Duoneb 3 ml Ampul] 3 ml NEB RTQ6HP PRN 10/31/20 Lactobacillus Rhamnosus GG [Culturelle] 1 cap PO DAILY 10/31/20 Levothyroxine Sodium [Levothyroxine] 100 mcg PO Q6AM 10/31/20 Losartan Potassium 100 mg PO DAILY 10/31/20 Magnesium Oxide 400 mg PO DAILY 10/31/20 Omeprazole 40 mg PO BIDACBS 10/31/20 Ondansetron [Zofran Odt 4 mg Tablet] 4 mg PO Q8HP PRN 10/31/20 Temazepam [Restoril] 15 mg PO QPM 10/31/20 Tizanidine HCl 4 mg PO BIDP PRN 10/31/20 Escitalopram Oxalate [Lexapro 10 mg Tablet] 10 mg PO QHS 30 Days #30 tablet 11/06/20 Mirtazapine [Remeron 15 mg Tablet] 7.5 mg PO QHS 30 Days #15 tablet 11/06/20 History of Present Illiness History of Present Illness: 75-year-old female past medical history of atrial fibrillation oxygen dependent COPD, hypothyroidism, anxiety, presented to [facility] via EMS on 10/31/2020 being intubated at her facility after she was found unresponsive, as per admission note initially called EMS as patient was having difficulty breathing and requiring more oxygen. ICU was called, endotracheal tube switch, started on Solu-Medrol and taken to ICU. Patient successfully extubated yesterday and transferred to IMCU. Hospital Course Hospital Course: (1) Acute on chronic respiratory failure with hypoxia and hypercapnia Significant improvement. SPO2 WNL on 2 L nasal cannula. Persistent hypercarbia. Most likely to severe acute COPD exacerbation. Intubated on 10/30/2020 at home. Successfully extubated on 10/31/2020. Review of records from [facility] showed that patient's bicarb normally runs between 33-38. Continue BiPAP, DuoNebs, LAMA, LABA, ICS, steroids, flutter valve, incentive spirometry, pulmonary toileting. Patient noted to be having a habit of shallow breathing. Patient was educated on proper breathing technique. (2) Atrial fibrillation History of chronic persistent atrial fibrillation. Rate controlled. Anticoagulated. Resume home meds. Outpatient PCP and cardiology follow-up. (3) Anxiety History of anxiety, takes Xanax at home. Having frequent panic attacks. Stating that she was started on Klonopin which did not help. He was also started on BuSpar with no significant improvement of her panic attacks. Continue benzodiazepines. Fall precautions. Outpatient PCP and psychiatry follow-up. (4) COPD exacerbation History of oxygen dependent COPD. Plan as per #1. (5) Chronic back pain Chronic back pain opioid dependent. Resume home meds. (6) Hypothyroidism Resume home meds. (7) Depression Denies any suicidal homicidal ideation. Reporting improvement of her insomnia since being started on mirtazapine. Home medications fluoxetine 20 mg every afternoon, patient is stating that she does not think that fluoxetine is helping. Continue Lexapro and mirtazapine. (8) Hyponatremia Likely SIADH due to SSRIs. Improving. Urine sodium <20. Denies any nausea vomiting or diarrhea. Review of records from [facility] shows that patient has chronic persistent hyponatremia. Her average sodium is on record review is 129-130. Physical Exam Vital Signs: Temp Pulse Resp BP Pulse Ox 98.1 F 65 19 141/64 H 100 11/06/20 09:31 11/06/20 09:31 11/06/20 09:31 11/06/20 09:31 11/06/20 09:31 Intake & Output 11/06/20 11/07/20 11/08/20 06:59 06:59 06:59 Intake Total 1412 Output Total 700 Balance 712 Weight 66.9 kg General appearance: PRESENT: no acute distress, well-developed, well-nourished Head exam: PRESENT: atraumatic, normocephalic Respiratory exam: PRESENT: clear to auscultation lavern, other - shallow breathing. ABSENT: rales, rhonchi, wheezes Cardiovascular exam: PRESENT: RRR. ABSENT: diastolic murmur, rubs, systolic mu rmur GI/Abdominal exam: PRESENT: normal bowel sounds, soft. ABSENT: distended, guarding, mass, organolmegaly, rebound, tenderness Neurological exam: PRESENT: alert, awake, oriented to person, oriented to place, oriented to time, oriented to situation, CN II-XII grossly intact. ABSENT: motor sensory deficit Psychiatric exam: PRESENT: anxious Results Laboratory Results: WBC 8.7 10^3/uL (4.0-10.5) 11/04/20 04:28 RBC 3.55 10^6/uL (3.72-5.28) L 11/04/20 04:28 Hgb 10.7 g/dL (12.0-15.5) L 11/04/20 04:28 Hct 32.3 % (36.0-47.0) L 11/04/20 04:28 MCV 91 fl (80-97) 11/04/20 04:28 MCH 30.0 pg (27.0-33.4) 11/04/20 04:28 MCHC 33.0 g/dL (32.0-36.0) 11/04/20 04:28 RDW 14.1 % (11.5-14.0) H 11/04/20 04:28 Plt Count 329 10^3/uL (150-450) 11/04/20 04:28 Lymph % (Auto) 12.3 % (13-45) L 11/04/20 04:28 [place] % (Auto) 12.1 % (3-13) 11/04/20 04:28 Eos % (Auto) 0.0 % (0-6) 11/04/20 04:28 Baso % (Auto) 0.1 % (0-2) 11/04/20 04:28 Absolute Neuts (auto) 6.6 10^3/uL (1.7-8.2) 11/04/20 04:28 Absolute Lymphs (auto) 1.1 10^3/uL (0.5-4.7) 11/04/20 04:28 Absolute Monos (auto) 1.1 10^3/uL (0.1-1.4) 11/04/20 04:28 Absolute Eos (auto) 0.0 10^3/uL (0.0-0.6) 11/04/20 04:28 Absolute Basos (auto) 0.0 10^3/uL (0.0-0.2) 11/04/20 04:28 Seg Neutrophils % 75.5 % (42-78) 11/04/20 04:28 PT 15.1 SEC (11.4-15.4) 10/31/20 00:37 INR 1.16 10/31/20 00:37 Carbonic Acid 1.69 mmol/L (1.05-1.35) H 11/06/20 06:00 HCO3/H2CO3 Ratio 20:1 11/06/20 06:00 ABG pH 7.42 (7.35-7.45) 11/06/20 06:00 ABG pCO2 56.0 mmHg (35-45) H 11/06/20 06:00 ABG pO2 108.8 mmHg (80-100) H 11/06/20 06:00 ABG HCO3 35.4 mmol/L (20-24) H 11/06/20 06:00 ABG Total CO2 37.1 mmol/L (21-25) H 11/06/20 06:00 ABG O2 Saturation 97.9 % (94-98) 11/06/20 06:00 ABG Base Excess 9.5 mmol/L 11/06/20 06:00 FiO2 30% 11/06/20 06:00 Sodium 129.7 mmol/L (137-145) L 11/06/20 05:15 Potassium 4.6 mmol/L (3.6-5.0) 11/06/20 05:15 Chloride 90 mmol/L (98-107) L 11/06/20 05:15 Carbon Dioxide 37 mmol/L (22-30) H 11/06/20 05:15 Anion Gap 3 (5-19) L 11/06/20 05:15 BUN 24 mg/dL (7-20) H 11/06/20 05:15 Creatinine 0.54 mg/dL (0.52-1.25) 11/06/20 05:15 Est GFR ( Amer) > 60 (>60) 11/06/20 05:15 Est GFR (MDRD) Non-Af > 60 (>60) 11/06/20 05:15 Glucose 83 mg/dL (75-110) 11/06/20 05:15 POC Glucose 104 mg/dL (70-110) 11/05/20 12:01 Lactic Acid 2.5 mmol/L (0.7-2.1) H 10/31/20 03:45 Calcium 8.9 mg/dL (8.4-10.2) 11/06/20 05:15 Phosphorus 2.5 mg/dL (2.5-4.5) 11/03/20 04:36 Magnesium 1.6 mg/dL (1.6-2.3) 11/01/20 06:26 Total Bilirubin 0.7 mg/dL (0.2-1.3) 11/02/20 05:32 Direct Bilirubin 0.3 mg/dL (0.0-0.4) 11/02/20 05:32 Neonat Total Bilirubin Not Reportable 11/02/20 05:32 Neonat Direct Bilirubin Not Reportable 11/02/20 05:32 Neonat Indirect Bili Not Reportable 11/02/20 05:32 AST 27 U/L (14-36) 11/02/20 05:32 ALT 22 U/L (<35) 11/02/20 05:32 Alkaline Phosphatase 29 U/L (38-126) L 11/02/20 05:32 Troponin I < 0.012 ng/mL 10/31/20 00:37 NT-Pro-B Natriuret Pep 563 pg/mL (<125) H 10/31/20 00:37 Total Protein 6.2 g/dL (6.3-8.2) L 11/02/20 05:32 Albumin 3.7 g/dL (3.5-5.0) 11/02/20 05:32 Urine Color STRAW 11/05/20 06:42 Urine Appearance CLEAR 11/05/20 06:42 Urine pH 6.0 (5.0-9.0) 11/05/20 06:42 Ur Specific [place] 1.009 11/05/20 06:42 Urine Protein NEGATIVE mg/dL (NEGATIVE) 11/05/20 06:42 Urine Glucose (UA) NEGATIVE mg/dL (NEGATIVE) 11/05/20 06:42 Urine Ketones NEGATIVE mg/dL (NEGATIVE) 11/05/20 06:42 Urine Blood SMALL (NEGATIVE) H 11/05/20 06:42 Urine Nitrite NEGATIVE (NEGATIVE) 11/05/20 06:42 Urine Nitrite (Reflex) NEGATIVE (NEGATIVE) 10/31/20 00:37 Urine Bilirubin NEGATIVE (NEGATIVE) 11/05/20 06:42 Urine Urobilinogen NEGATIVE mg/dL (<2.0) 11/05/20 06:42 Ur Leukocyte Esterase NEGATIVE (NEGATIVE) 11/05/20 06:42 Leukocyte Esterase Rfl SMALL (NEGATIVE) H 10/31/20 00:37 Urine WBC (Auto) 1 /HPF 11/05/20 06:42 Urine RBC (Auto) 3 /HPF 11/05/20 06:42 U Hyaline Cast (Auto) 15 /LPF 10/31/20 00:37 Urine Bacteria (Auto) TRACE /HPF 10/31/20 06:40 Urine WBC (Reflex) 16 /HPF 10/31/20 00:37 Squamous Epi Cells Auto <1 /HPF 11/05/20 06:42 Urine Mucus (Auto) RARE /LPF 11/05/20 06:42 Urine Sodium 22 mmol/L (30-90) L 11/02/20 12:58 Urine Ascorbic Acid NEGATIVE (NEGATIVE) 11/05/20 06:42 Influenza A (RT-PCR) NEGATIVE (NEGATIVE) 10/31/20 01:27 Influenza B (RT-PCR) NEGATIVE (NEGATIVE) 10/31/20 01:27 RSV (RT-PCR) NEGATIVE (NEGATIVE) 10/31/20 01:27 SARS-CoV-2 Rap RNA(RT-PCR) NEGATIVE (NEGATIVE) 10/31/20 01:27 10/31/20 00:37 Troponin I < 0.012 NT-Pro-B Natriuret Pep 563 H Impressions: Chest X-Ray 10/31/20 00:44 IMPRESSION: 1. Positioning of endotracheal tube and enteric tube as above. 2. Evidence of small bilateral pleural effusions with nonspecific adjacent opacities. Chest X-Ray 11/01/20 06:00 IMPRESSION: MINIMAL INTERSTITIAL PROMINENCE. MAY BE CHRONIC. NO ACUTE FINDINGS. Stroke Is this a Stroke Patient?: No Acute Heart Failure Is this a Heart Failure Patient?: No
== END 2020-11-06 10:32 | disposition home or self-care (01) | DRG 208 ==
LOC: ER 00:30 → EH 05:48 → 5 22:12
PROVIDERS: ADMIT Anesthesiology; ATTEND Internal Medicine
PROC: 5A1935Z Respiratory Ventilation, Less than 24 Consecutive Hours (ICD-10-PCS; principal; 2020-10-31)
PROC: 0BH17EZ Insertion of Endotracheal Airway into Trachea, Via Natural or Artificial Opening (ICD-10-PCS; 2020-10-31)
PROC: 5A09457 Assistance with Respiratory Ventilation, 24-96 Consecutive Hours, Continuous Positive Airway Pressure (ICD-10-PCS; 2020-10-31)
DX: J96.22 Acute and chronic respiratory failure with hypercapnia (principal); J44.1 Chronic obstructive pulmonary disease with (acute) exacerbation; F11.20 Opioid dependence, uncomplicated; E87.1 Hypo-osmolality and hyponatremia; I48.21 Permanent atrial fibrillation; J96.21 Acute and chronic respiratory failure with hypoxia; E03.9 Hypothyroidism, unspecified; F17.210 Nicotine dependence, cigarettes, uncomplicated; F41.1 Generalized anxiety disorder; F32.9 Major depressive disorder, single episode, unspecified; I10 Essential (primary) hypertension; Z20.822 Contact with and (suspected) exposure to COVID-19; M54.9 Dorsalgia, unspecified; G89.29 Other chronic pain; Z79.51 Long term (current) use of inhaled steroids; Z79.899 Other long term (current) drug therapy; Z99.81 Dependence on supplemental oxygen; Z79.01 Long term (current) use of anticoagulants; Z86.010 Personal history of colon polyps
CPT/HCPCS: 36415; 36600; 51702; 71045; 80048; 80053; 81001; 82803; 82962; 83605; 83735; 83880; 84100; 84300; 84484; 85025; 85027; 85610; 87040; 87070; 87205; 93005; 93010; 94002; 94640; 94660; 96365; 96366; 96375; 99285; 0241U; C9803; J0456; J0692; J1650; J1815; J1940; J2060; J2405; J2550; J2704; J2920; J2930; J3010; J3490; J7030; J7060; J7512; S0028